=== PATIENT | female | born 1960 | race African-American/Black ===

== ENCOUNTER 2019-12-25 08:08 | Outpatient (CLI) | payer OTHER, SELFPAY ==
--- NOTE | ~2019-12-25 | MM_ITS ---
EXAMINATION: MM screening agustina BI w lorene HISTORY: Screening mammogram TECHNIQUE: Craniocaudal and mediolateral oblique 3-D tomosynthesis images were obtained and synthetic 2-D images were generated. CAD analysis was submitted and interpreted. COMPARISON: 12/18/2018, 12/16/2017, 12/03/2016 bilateral digital screening mammogram examinations BREAST PARENCHYMAL COMPOSITION: There are scattered areas of fibroglandular density. FINDINGS: There is no evidence of suspicious mass, calcification, or architectural distortion to sugg est malignancy in either breast. There has been no suspicious interval change. IMPRESSION: 1. No mammographic evidence of malignancy. 2. Recommend routine screening mammography in one year. Reviewed, dictated and finalized at location A.
== END 2019-12-25 08:09 | disposition home or self-care (01) ==
LOC: ANHIMG 08:10
PROVIDERS: PCP Family Medicine; Visit Provider Obstetrics & Gynecology Gynecology
DX: Z12.31 Encounter for screening mammogram for malignant neoplasm of breast (principal)
CPT/HCPCS: 77063; 77067

== ENCOUNTER 2020-04-22 07:23 | Outpatient (CLI) | payer OTHER, SELFPAY ==
--- NOTE | ~2020-04-22 | US_ITS ---
EXAMINATION: US thyroid EXAM DATE: 04/22/2020 08:16 INDICATION: Nontoxic single thyroid nodule. Right thyroid lobectomy. Prior left thyroid lobe biopsy. TECHNIQUE: Multiple grayscale and Doppler images of the thyroid were obtained (by a technologist who performed the scan) and subsequently reviewed. Individual nodules and recommendations may be reporte d in accordance with TI-RADS system as designated by the 2017 ACR White Paper TI-RADS committee. Comp saud is made to prior examination from 01/02/2019, 01/15/2014. FINDINGS: The right thyroid of hysterectomy bed is unremarkable. Left thyroid lobe measures 5.8 x 1.6 x 1.9 cm, mildly enlarged. There are several small nodules, largest measuring 2.3 x 1.1 x 2.4 cm, dimensions l arger than reported on prior study at 1.8 x 1.1 x 1.8. Correlating with prior ultrasound biopsy from 2013, it was a smaller thyroid nodule with calcifications that was biopsied, not this nodule. IMPRESSION: Left thyromegaly, nodules with mild increase in size of the largest nodule, likely differ ent from nodule biopsied in 2013. Could consider biopsy of this larger dominant nodule. Reviewed, dictated and finalized at location A. IMPRESSION: Left thyromegaly, nodules with mild increase in size of the largest nodule, likely different from nodule biopsied in 2013. Could consider biopsy o f this larger dominant nodule.
== END 2020-04-22 07:24 | disposition home or self-care (01) ==
LOC: ANHIMG 07:25
PROVIDERS: PCP Family Medicine; Visit Provider Internal Medicine Endocrinology, Diabetes & Metabolism
DX: E03.9 Hypothyroidism, unspecified (principal); E04.1 Nontoxic single thyroid nodule
CPT/HCPCS: 76536

== ENCOUNTER 2020-05-28 08:23 | Outpatient (CLI) | payer OTHER, SELFPAY ==
--- NOTE | ~2020-05-28 | US_ITS ---
EXAMINATION: US FNA w image guidance DATE: 05/28/2020 09:47 INDICATION: Nontoxic single thyroid nodule TECHNIQUE: A time-out was performed to verify the patient's name, date of , and procedure to be performed . The procedure and its benefits and risks were discussed with the patient. Risks specifically discus sed included bleeding and infection. The patient understood the risks and agreed to proceed. The neck was prepped and draped in the usual sterile manner. 2 mL 1% lidocaine was used for local anesthesia . 6 passes were made with a 25G needle into the lesion. Appropriate needle location was documented with continuous sonographic guidance. The specimens were passed to the medical technologist chief in the room. A sterile bandage was applied. There were no immediate complications. FINDINGS: Grayscale ultrasound images demonstrate biopsy needles advanced into the 2.4 cm solid left thyroid no dule of concern. IMPRESSION: 1. Successful ultrasound-guided fine needle aspiration of a 2.4 cm solid left thyroid nodule. Reviewed, dictated and finalized at location A. P PROJECT MANAGER
== END 2020-05-28 08:24 | disposition home or self-care (01) ==
PROVIDERS: PCP Family Medicine; Visit Provider Otolaryngology
DX: E04.1 Nontoxic single thyroid nodule (principal)
CPT/HCPCS: 10005; 88173; 88305

== ENCOUNTER 2020-09-23 07:12 | Outpatient (CLI) | payer OTHER, SELFPAY ==
--- NOTE | ~2020-09-23 | US_ITS ---
EXAMINATION: US thyroid DATE: 09/23/2020 07:44 INDICATION: Nontoxic single thyroid nodule TECHNIQUE: Multiple ultrasound images of the thyroid were obtained. COMPARISON: 04/22/2020 FINDINGS: The right thyroid lobe is not visualized and reportedly surgically absent. No abnormal tissue in the right thyroid fossa. The left thyroid lobe measures 5.2 x 2.5 x 1.6 cm. There are three solid iso to slightly hypoechoic nodules which are all wider than tall with either smooth partially smooth and il l-defined margins, all TI-RADS 4 (moderately suspicious , FNA if >=1.5 cm, annual followup is >=1 cm) . The largest measures 2.2 x 1.9 x 0.8 cm and the next largest measuring 2.0 x 1.7 x 1.0 cm. The smal lest measures 11 mm in maximal diameter. The 2 largest nodules have demonstrated progressive slow int erval growth since 02/14/2015 at which time they each measured 1.5 cm in maximal diameter. There is an additional smaller There is nodule 8 mm nodule in the upper pole of the left thyroid which is centra lly isoechoic to hypoechoic with ill-defined margins but which is also color than wide and with coars e shadowing calcification (TI-RADS 5, highly suspicious , FNA if >=1.0 cm, annual followup is >0.5 cm ). Finally there is a benign 5 mm TI RADS 1 cystic nodule. Normal echotexture, echogenicity and vascu lar flow throughout the thyroid gland. IMPRESSION: 1. Status post right thyroidectomy with multiple left-sided thyroid nodules. The 2 largest TI RADS 4 nodules measuring 2.2 cm and 2.0 cm have demonstrated slow interval growth since at least 2014 and me et criteria for ultrasound-guided biopsy which would be recommended. Reviewed, dictated and finalized at location B. E HAND IMPRESSION: 1. Status post right thyroidectomy with multiple left-sided thyroid nodules. Th e 2 largest TI RADS 4 nodules measuring 2.2 cm and 2.0 cm have demonstrated slo w interval growth since at least 2014 and meet criteria for ultrasound-guided b iopsy which would be recommended.
== END 2020-09-23 07:13 | disposition home or self-care (01) ==
LOC: ANHIMG 07:13
PROVIDERS: PCP Family Medicine; Visit Provider Internal Medicine Endocrinology, Diabetes & Metabolism
DX: E04.1 Nontoxic single thyroid nodule (principal); Z98.890 Other specified postprocedural states
CPT/HCPCS: 76536

== ENCOUNTER 2020-11-04 07:37 | Outpatient (CLI) | payer OTHER, SELFPAY ==
--- NOTE | 2020-11-04 08:55 | ECG_ITS ---
Measurements Intervals [place] Rate: 62 P: 64 ID: [id number] QRS: -9 QRSD: 108 T: 38 QT: 408 QTc: 415 Interpretive Statements SINUS RHYTHM INCOMPLETE RIGHT BUNDLE BRANCH BLOCK BORDERLINE R WAVE PROGRESSION, ANTERIOR LEADS BORDERLINE ECG Electronically Signed On 11-04-2020 9:21:59 CDT by Neal Holden D.O.
[2020-11-04 09:29] LABS: Add Urine Microscopic? NO; Appearance Urine Clear (Clear); Bilirubin Urine Negative (Negative); Blood Urine Negative (Negative); Color Urine Yellow (Yellow); Glucose Urine UA Negative (Negative); Ketones Urine Negative (Negative); Leukocyte Esterase Ur Negative LEU/UL (Negative); Nitrate Urine Negative (Negative); Protein Urine Negative (Negative); Specific Grav Ur 1.026 (1.001-1.035); Urobilinogen Urine Negative mg/dL (<2.0)
[2020-11-04 09:35] LABS: INR 0.9; Prothrombin Time 12.9 Seconds (11.1-14.7)
[2020-11-04 09:36] LABS: Partial Thromboplastin Time 29.8 SECONDS (22.3-36.8); Urine Cotinine NEGATIVE
== END 2020-11-04 07:38 | disposition home or self-care (01) ==
LOC: ANHSURGERY 07:42
PROVIDERS: PCP Family Medicine; Visit Provider Orthopaedic Surgery
DX: M17.12 Unilateral primary osteoarthritis, left knee (principal); Z01.818 Encounter for other preprocedural examination; I45.10 Unspecified right bundle-branch block
CPT/HCPCS: 80307; 81003; 85610; 85730; 86850; 86900; 86901; 87081; 93005

== ENCOUNTER → 2020-11-07 01:02 | Outpatient (CLI) | payer OTHER, SELFPAY ==
[2020-11-07 19:43] LABS: SARS-CoV-2 RNA PCR Negative
== END ==
PROVIDERS: PCP Family Medicine; Visit Provider Orthopaedic Surgery
DX: Z01.812 Encounter for preprocedural laboratory examination (principal); Z20.822 Contact with and (suspected) exposure to COVID-19
CPT/HCPCS: C9803; U0003; U0005

== ENCOUNTER 2020-11-12 19:17 | Observation (INO) | payer OTHER, SELFPAY ==
[2020-11-04 08:23] VITALS: BP 150/86; PULSE 80; RESP 18; TEMP 36.5; O2SAT 100; BMI 30.4
[2020-11-11] VITALS (12 sets, daily range): BP systolic 122–176; BP diastolic 61–91; PULSE 79–110; RESP 10–20; TEMP 36.1–36.7; O2SAT 98–100; BMI 30.5
--- NOTE | 2020-11-11 07:45 | WPDANESEPPF ---
Anes - Initial Pre Proc Eval Procedure: Operation Date: 11/11/20 10:30 Proposed Procedures p Left Total Knee Arthroplasty - Juan Turpin MD Date/Time: 11/11/20 07:45 Surgeon: Juan Turpin MD Pre Op Diagnosis: Left Knee DJD Patient Data Age: 60 Gender: F Height: 1.66 m Weight: 84.1 kg Last Vital Signs Temp 36.5 C 11/04/20 08:23 Pulse 80 11/04/20 08:23 Resp 18 11/04/20 08:23 BP 150/86 H 11/04/20 08:23 Pulse Ox 100 11/04/20 08:23 Allergies Allergy/AdvReac Type Severity Reaction Status Date / Time lisinopril Allergy Swelling Verified 11/11/20 08:44 Home Medications Medication Instructions Recorded Confirmed Type estradiol 1 mg tablet 1 mg PO DAILY 04/15/20 11/11/20 History meloxicam 15 mg tablet 15 mg PO DAILY PRN 05/27/20 11/05/20 History tramadol 50 mg tablet 50 mg PO Q6H PRN 05/27/20 11/05/20 History chlorhexidine gluconate 4 % 1 applic TOPICAL ONCE #237 ml 09/02/20 11/11/20 Rx topical liquid cholecalciferol (vitamin D3) 1,250 50,000 unit PO 2XW cap 10/08/20 11/11/20 History mcg (50,000 unit) capsule clonidine HCl 0.1 mg tablet 0.1 mg PO BID #60 tablet 10/08/20 11/11/20 Rx levothyroxine 50 mcg tablet 50 mcg PO DAILY #90 tablet 10/12/20 11/11/20 Rx hydrocodone 7.5 mg-acetaminophen 1 tablet PO Q6H PRN #120 tablet 10/20/20 11/11/20 Rx 325 mg tablet acetaminophen [Tylenol Arthritis] 650 mg PO Q6H PRN 11/04/20 11/11/20 History clotrimazole-betamethasone 1 applic TOPICAL BID PRN 11/04/20 11/11/20 History Patient hx anesthesia problems: none Family hx anesthesia problems: none PMFSH Past Medical History Medical History (Updated 11/11/20 @ 07:50 by Sterling Hernandez MD) Abnormal fasting glucose Acute sinusitis, unspecified Candidiasis Chronic interstitial cystitis Chronic left shoulder pain Chronic neck pain Chronic nonallergic rhinitis Chronic pain of both knees Essential (primary) hypertension Hypothyroidism, unspecified Left knee DJD Multinodular goiter Obesity Osteoarthritis involving multiple joints on both sides of body Sore throat Vitamin D deficiency, unspecified Surgical History Surgical History Hx of arthroscopy of left knee Status post total left knee replacement Family History Family History Other Hypertension Social History Social History Second hand tobacco smoke exposure: No Alcohol intake: never Substance use: never Substance use type: does not use Living arrangements: alone Spiritual care concerns: No Anes - Eval Final PreProcedure Day of Procedure 11/11/20 07:45 Patient weight: obese Heart: regular rate and rhythm Lungs: clear to auscultation and normal air movement Airway: Mallampati scale class II Neurological: alert and oriented Last oral intake: >/= 8 hours ASA classification: III Emergent: no Anesthetic plan: proceed Anesthesia type and monitoring: general LMA and ETT Informed Consent: The patient's anesthetic plan and its attendant risks and benefits were discussed with the patient/family/POA. Questions were solicited and answers provided to the satisfaction of the patient/family/POA.
--- NOTE | 2020-11-11 07:50 | WPDANESPNB ---
Anes - Peripheral Nerve Block Date/Time: 11/11/20 07:50 I have discussed with the patient/family/POA the placement of a peripheral nerve block for post-operative pain management, including associated risks, benefits, complications, and side effects. Alternative methods of post-operative analgesia were detailed. Questions were solicited and answers provided to the satisfaction of the patient/family/POA. Time-Out: A pre-procedural Time-Out was completed immediately before starting the procedure and confirmed: Patient Identification, Site, Procedure, Patient Position and the Availability of Requisite Equipment. Clinical Indications: Acute post-operative pain management requested by the operative surgeon. Nerve Block Insertion Note Anes-nerve block: adductor canal left Patient position: supine Skin prep: chlorhexidine Needle: 22 gauge, stimulating, insulated echogenic needle. Needle length: 80 mm Technique: ultrasound Technique comment: in plane Injectate: bupivacaine 0.5% with epi 5 mcg/ml (30cc) Observations: tolerated well Complications: none Procedure start time:: 1125 Procedure end time:: 1130
--- NOTE | 2020-11-11 08:19 | WPDHPUPDATE1 ---
History and Physical Update Update Date/Time: 11/11/20 08:19 History and Physical has been reviewed, including an updated exam of the patient. There are NO changes in the patient's condition. Risks, benefits, and alternatives have been discussed and questions answered. Patient agrees to proceed with procedure.
[2020-11-11] MEDS: ACETAMINOPHEN 500 MG TABLET 1000 MG PO (09:46)
[2020-11-11] MEDS: LACTATED RINGERS 1,000 ML 30 ML IV CONT ×2 (09:46→14:01)
[2020-11-11] MEDS: TRANEXAMIC ACID 1,000MG/ISO100 1,000 MG/100 ML BAG 200 MG IVPB (09:47)
[2020-11-11] MEDS: ceFAZolin 2 GM/D5W 50 ML 2 GM/50 ML BAG IVPB ×2 (11:45→20:08)
[2020-11-11] MEDS: GENTAMICIN BONE CEMENT REFOBACIN 1 EACH TOPICAL (12:45)
--- NOTE | 2020-11-11 14:10 | PM.PROC ---
Procedure Note - Detailed Date of procedure: 11/11/20 Pre-op diagnosis: Left Knee DJD Post-op diagnosis: same Procedure performed: L TKA Description of procedure: THE LEFT KNEE WAS PREPPED AND DRAPED IN THE STERILE FASHION. A MIDLINE SKIN INCISION WAS MADE. A MEDIAL PARAPATELLAR ARTHROTOMY WAS MADE. THE PATELLA WAS EVERTED. THERE WAS TRICOMPARTMENT DJD. THERE WAS MINIMAL PATELLA DJD. AN INTRAMEDULLARY KASSIDY WAS PLACED IN THE FEMUR. A DISTAL FEMORAL CUT WAS MADE IN 5 DEGREES OF VALGUS REMOVING APPROXIMATELY 9 MM OF BONE FROM THE DISTAL FEMUR. THE FEMUR WAS SIZED TO 62.5. A 62.5 FEMORAL CUTTING BLOCK WAS PLACED IN 3 DEGREES OF EXTERNAL ROTATION AND IN ALIGNMENT WITH CHANDRIKA'S LINE AND THE TRANSEPICONDYLAR AXIS. ANTERIOR POSTERIOR AND CHAMFER CUTS WERE MADE. THE CUTS WERE EXCELLENT. NEXT AN INTRAMEDULLARY CUTTING GUIDE WAS PLACED IN THE TIBIA. A TRANS TIBIAL CUT WAS MADE ALONG THE LONG AXIS OF THE TIBIA. APPROXIMATELY 10 MM OF BONE WAS REMOVED FROM THE HIGH SIDE OF THE TIBIA. THE TIBIA WAS THEN PLANED TO A SMOOTH SURFACE. POSTERIOR FEMORAL OSTEOPHYTES WERE REMOVED FROM THE FEMORAL CONDYLES. A 67 TIBIAL TRIAL WAS PLACED IN ALIGNMENT WITH THE 1/3 MEDIAL ASPECT OF THE TIBIAL TUBERCLE. THEN A 70 FEMORAL TRIAL COMPONENT WAS PLACED. BOTH HAD EXCELLENT FITS. EVENTUALLY A 10 MM POLYETHYLENE TRIAL COMPONENT WAS PLACED. THE KNEE WAS TAKEN THROUGH A RANGE OF MOTION. THE KNEE CAME OUT TO FULL EXTENSION. THERE WAS NO ABNORMAL TILT TO THE PATELLA. THERE WAS GOOD A/P AND VARUS/VALGUS STABILITY. THERE WAS NO EXCESSIVE ROLL BACK WITH FLEXION. THE TRIAL COMPONENTS WERE REMOVED. THEN A 62.5 FEMORAL COMPONENT AND 67 TIBIAL COMPONENT WITH A 10 CR POLYETHYLENE COMPONENT WERE CEMENTED INTO PLACE. ONCE THE CEMENT WAS HARD THE KNEE WAS TAKEN THROUGH A ROM AGAIN AND FOUND TO BE STABLE WITH NO PATELLA TILT NO EXCESSIVE ROLL BACK WITH FLEXION AND GOOD STABILITY WITH COMPLETE AND FULL EXTENSION. THE KNEE WAS IRRIGATED WITH STERILE BETADINE AND WATER FOR ABOUT 3 MINUTES. THE BLEEDERS WERE CAUTERIZED. THE ARTHROTOMY WAS REPAIRED WITH NUMBER 1 VICRYL. THE SUB CUTANEOUS LAYER WITH 2-0 VICRYL AND THE SKIN WITH MARIBETH. THE WOUND WAS WASHED AND A STERILE DRESSING WAS APPLIED. PATIENT WAS EXTUBATED. Anesthesia: GETA Surgeon: Juan Turpin MD Estimated blood loss (mL): 100 Complications: No immediate complications Condition: stable Disposition: PACU
[2020-11-11] MEDS: fentaNYL CITRATE INJ (*CRX) 100 MCG/2 ML VIAL 25 MCG IV PUSH ×4 (14:14→14:30)
[2020-11-11] MEDS: HYDROmorphone HCL INJ (*CRX) 1 MG/ML SYR 0.25 MG IV PUSH ×4 (14:37→14:59)
--- NOTE | 2020-11-11 15:20 | ADMGEN ---
This patient, Key Hughes, was admitted to Medical Room 243-. Patient/family oriented to hospital policies and general routines including ID bracelet, bed and alarms, visiting hours, pain management, procedures, bathroom and other care routines, personal items, smoking policy, room service/diet, and visiting hours. Information on how to activate the Rapid Response Team has been discussed. Patient/Family are encouraged to report perceived risks to care and to ask questions if they do not understand what they are told or what they should do.
[2020-11-11] MEDS: oxyCODONE HCL (*CRX) 5 MG TAB IR 10 MG PO (15:56)
[2020-11-11] MEDS: cloNIDine HCL 0.1 MG TABLET PO (16:02)
[2020-11-11] MEDS: SODIUM CHLORIDE 0.9% IV 1,000 ML 125 ML IV CONT (16:03)
[2020-11-11] MEDS: KETOROLAC 15 MG/ML VIAL (*BKC) IV PUSH ×2 (17:02→23:57)
[2020-11-11] MEDS: DOCUSATE SODIUM LIQ 100 MG/10 ML UDC PO (17:27)
[2020-11-11] MEDS: diazePAM (*CRX) 5 MG TABLET PO (17:31)
[2020-11-11] MEDS: oxyCODONE/ACETAMINOPHEN (*CRX) 5-325 MG TABLET 1 TABLET PO (20:11)
[2020-11-11] MEDS: FAMOTIDINE 20 MG TABLET PO (20:15)
[2020-11-12] VITALS (7 sets, daily range): BP systolic 120–139; BP diastolic 55–75; PULSE 68–110; RESP 16–21; TEMP 36.9–37.2; O2SAT 99–100
--- NOTE | ~2020-11-12 | XR_ITS ---
EXAMINATION: XR knee LT 2V DATE: 11/11/2020 14:25 CDT INDICATION: Left total knee arthroplasty TECHNIQUE: 2 views left knee FINDINGS: There is a left total knee arthroplasty in expected position. Subcutaneous gas with fluid and air in the joint and overlying skin oxana are consistent with recent surgery. No evidence of pe riprosthetic fracture. IMPRESSION: 1. Recent left total knee arthroplasty. Reviewed, dictated and finalized at location A.
[2020-11-12] MEDS: SODIUM CHLORIDE 0.9% IV 1,000 ML 125 ML IV CONT (01:37)
[2020-11-12] MEDS: ceFAZolin 2 GM/D5W 50 ML 2 GM/50 ML BAG IVPB ×2 (04:03→12:13)
[2020-11-12] MEDS: oxyCODONE/ACETAMINOPHEN (*CRX) 5-325 MG TABLET 1 TABLET PO ×2 (04:06→09:10)
[2020-11-12 05:34] LABS: Basophils Percent Auto 0.2 % (0.2-1.2); Eosinophils Percent Auto 0.2 % (0-4.4); Hemoglobin 10.5 g/dL (12.0-15.0); Immature Granulocyte Absolute 0.04 K/mm3 (0.00-0.031); Immature Granulocyte Percent A 0.5 % (0-0.5); Lymphocytes Absolute Auto 1.06 K/mm3 (0.9-3.2); Lymphocytes Percent Auto 13.2 % (18.3-44.2); Mean Corpuscular HGB Conc 31.8 g/dl (32-36); Mean Corpuscular Hemoglobin 27.9 pg (26-34); Mean Corpuscular Volume 87.8 fl (80-100); Mean Platelet Volume 10.8 fl (7.4-10.4); Monocytes Absolute Auto 0.8 K/mm3 (0.1-0.6); Monocytes Percent Auto 9.9 % (2.6-8.5); Neutrophils Absolute Auto 6.1 K/mm3 (1.3-6.7); Platelet Count Result 166 k/mm3 (150-375); Red Blood Count 3.76 M/mm3 (4.2-5.4); Red Cell Distribution Width 13.5 % (11.5-14.5); White Blood Count 8.1 K/mm3 (4.5-10.0)
[2020-11-12] MEDS: LEVOTHYROXINE SODIUM 50 MCG TABLET PO (05:44)
[2020-11-12] MEDS: KETOROLAC 15 MG/ML VIAL (*BKC) IV PUSH ×3 (05:44→18:15)
[2020-11-12 05:57] LABS: Anion Gap 0 mmol/L (8-16); Blood Urea Nitrogen 10 mg/dL (7-17); Calcium 7.9 mg/dL (8.4-10.2); Carbon Dioxide 30 mmol/L (22-30); Chloride 107 mmol/L (98-107); Estimated CRCL calculation 80 ml/min; Estimated Glomerular Filt Rate > 60; Glucose 115 mg/dL (65-105); Potassium 3.5 mmol/L (3.4-5.0); Sodium 137 mmol/L (137-145)
--- NOTE | 2020-11-12 08:06 | P.PNAN_ITS ---
Anes - Prog Note Post-Op Date/Time: 11/12/20 08:06 Cardiovascular status: normal Respiratory status: normal Airway patency: baseline Mental status: baseline Post-Op hydration status: normal Vital Signs: Last Vital Signs Temp 98.9 F 11/12/20 06:00 Pulse 86 11/12/20 06:00 Resp 18 11/12/20 06:00 BP 133/55 L 11/12/20 06:00 Pulse Ox 99 11/12/20 06:00 Pain Score (VAS): 08/02 I/O: Intake & Output 11/11/20 11/12/20 11/12/20 23:59 07:59 15:59 Intake Total 200 1800 Output Total 500 Balance 200 1300 Laboratory Tests 11/12/20 05:11 11/12/20 05:11 11/12/20 11/12/20 05:11 05:11 WBC 8.1 RBC 3.76 L Hgb 10.5 L Hct 33.0 L MCV 87.8 MCH 27.9 MCHC 31.8 L RDW 13.5 Plt Count 166 MPV 10.8 H Immature Gran % (Auto) 0.5 Neut % (Auto) 76.0 H Lymph % (Auto) 13.2 L Crowley % (Auto) 9.9 H Eos % (Auto) 0.2 Baso % (Auto) 0.2 Lymph # (Auto) 1.06 Crowley # (Auto) 0.8 H Eos # (Auto) 0.0 Baso # (Auto) 0.0 Abs Immat Gran (auto) 0.04 H Absolute Neuts (auto) 6.1 Absolute Nucleated RBC 0.0 Nucleated RBC % 0.0 Sodium 137 Potassium 3.5 Chloride 107 Carbon Dioxide 30 Anion Gap 0 L BUN 10 Creatinine 0.70 Estim Creat Clear Calc 80 Estimated GFR > 60 Glucose 115 H Calcium 7.9 L Post-procedural complaints: none Patient Feedback: Patient satisfied with anesthetic care.
--- NOTE | 2020-11-12 08:46 | PM.PNORT ---
Progress Note: A&P Assessment and Plan (1) Status post total left knee replacement: Code(s): Z96.652 - Presence of left artificial knee joint Status: Acute Assessment and Plan: POD #1: LEFT TKA Continue PT/OT. WBAT. Walker. HIGH FALL RISK. Continue pain control. Ice knee. May remove APPLE bandage with PT/OT today. Monitor dressing. Change prior to discharge. DVT prophylaxis. SCDs. Incentive spirometry. Dispo: Home with Home Health pending progress with PT/OT. Subjective Subjective Date/Time Seen: 11/12/ 08:46 Post Op day: 1 Interval history: POD #1: LEFT TKA Patient reports feeling much better today. Pain well controlled. Up in chair eating breakfast. Awaiting PT/OT this AM. Review of Systems Review of Systems: All systems reviewed & are unremarkable except as noted in HPI and below Constitutional: Constitutional: Denies fever(s) and Denies headache(s) ENT: Denies headache(s) Cardiovascular: Cardiovascular: Denies chest pain, Denies diaphoresis, Denies palpitations and Denies dyspnea Respiratory: Respiratory: Denies dyspnea Gastrointestinal: Gastrointestinal: Denies abdominal pain, Denies constipation, Denies nausea and Denies vomiting Genitourinary: Genitourinary: Reports nocturia and Denies dysuria Musculoskeletal: Musculoskeletal: Reports arthralgias (Left Knee ), Reports joint swelling (Left Knee ) and Reports limited range of motion (ROM limited due to recent surgical intervention LEFT Knee ) Neurologic: Denies headache(s) Endocrine: Endocrine: Denies palpitations Exam Const: General: comfortable and no acute distress Resp: Effort & Inspection: normal respiratory effort Cardio: Rate: regular rate Rhythm: regular rhythm GI: GI Palp: Yes Soft to palpation, No Tenderness to palpation present (GI) and No Guarding due to palpation present (GI) Skin: Wounds: wounds noted Other: Incision c/d/i. No surrounding redness/warmth. No hematoma. Mild ecchymosis. No wound dehiscence Neuro: Cognition (Neuro): normal cognition Other: NV intact aside from block. Moves toes. Sensation intact to light touch. +ankle dorsiflexion/plantarflexion. Extrem: Left lower extremity: normal capillary refill and knee Details: tenderness (diffuse ), swelling (moderate consistent to recent surgery ), abnormal ROM (limited due to recent surgery ) and ecchymosis (as expected with recent surgery. NO hematoma. ) Other: Incision left TKA dressing c/d/i. No hematoma. No signs of infection. No wound dehiscence. Psych: Mental Status: mental status grossly normal Objective Data Vital Signs Vital Signs: Vital Signs - 24 hr 11/11/20 09:27 11/11/20 14:01 11/11/20 14:15 Temperature 36.1 C L 36.1 C L Pulse Rate 84 99 110 H Respiratory Rate 18 18 20 Blood Pressure 133/61 136/74 152/84 H Pulse Oximetry 100 100 100 11/11/20 14:30 11/11/20 14:45 11/11/20 15:00 Temperature Pulse Rate 97 97 85 Respiratory Rate 15 11 L 10 L Blood Pressure 145/78 H 154/74 H Pulse Oximetry 100 99 100 11/11/20 15:25 11/11/20 15:40 11/11/20 16:10 Temperature 36.1 C L 36.2 C L 36.3 C L Pulse Rate 92 88 87 Respiratory Rate 12 14 14 Blood Pressure 138/68 138/81 148/79 H Pulse Oximetry 98 100 100 11/11/20 17:10 11/11/20 18:00 11/11/20 22:00 Temperature 36.4 C L 36.3 C L 36.7 C Pulse Rate 99 87 79 Respiratory Rate 16 14 16 Blood Pressure 176/91 H 126/73 122/70 Pulse Oximetry 100 99 100 11/12/20 02:50 11/12/20 06:00 Temperature 37.0 C 37.2 C Pulse Rate 68 86 Respiratory Rate 18 18 Blood Pressure 124/66 133/55 L Pulse Oximetry 99 99 Intake/Output Intake/Output: Intake & Output 11/09/20 11/10/20 11/11/20 11/12/20 23:59 23:59 23:59 23:59 Intake Total 550 1800 Output Total 500 Balance 550 1300 Meds/Results Medications: Active Medications Generic Name Dose Route Start Last Admin Trade Name Freq PRN Reason Stop Dose Admin Acetaminophen 650 mg 11/11/20 15:16 Acetaminoph
[2020-11-12] MEDS: DOCUSATE SODIUM LIQ 100 MG/10 ML UDC PO ×2 (08:54→18:14)
[2020-11-12] MEDS: FAMOTIDINE 20 MG TABLET PO ×2 (08:54→20:31)
[2020-11-12] MEDS: cloNIDine HCL 0.1 MG TABLET PO ×2 (08:54→18:14)
[2020-11-12] MEDS: ASPIRIN 81 MG CHEWABLE TABLET 648 MG PO (12:04)
[2020-11-12] MEDS: oxyCODONE HCL (*CRX) 5 MG TAB IR 10 MG PO ×2 (16:20→20:33)
[2020-11-13 02:00] VITALS: BP 119/50; PULSE 112; RESP 21; TEMP 37.7; O2SAT 100
[2020-11-13] MEDS: oxyCODONE/ACETAMINOPHEN (*CRX) 5-325 MG TABLET 1 TABLET PO ×2 (02:12→06:15)
[2020-11-13] MEDS: LEVOTHYROXINE SODIUM 50 MCG TABLET PO (05:34)
[2020-11-13 06:00] VITALS: BP 129/62; PULSE 105; RESP 20; TEMP 36.6; O2SAT 99
[2020-11-13] MEDS: FAMOTIDINE 20 MG TABLET PO (09:33)
[2020-11-13] MEDS: ERGOCALCIFEROL 50,000 UNIT CAPSULE 50000 UNITS PO (09:33)
[2020-11-13] MEDS: DOCUSATE SODIUM LIQ 100 MG/10 ML UDC PO (09:34)
[2020-11-13] MEDS: ASPIRIN 81 MG CHEWABLE TABLET 648 MG PO (09:34)
[2020-11-13] MEDS: cloNIDine HCL 0.1 MG TABLET PO (09:34)
[2020-11-13 09:50] VITALS: BP 135/51; PULSE 102; RESP 16; TEMP 37.8; O2SAT 100
[2020-11-13] MEDS: oxyCODONE HCL (*CRX) 5 MG TAB IR 10 MG PO ×2 (10:01→14:53)
--- NOTE | 2020-11-13 13:33 | PM.PNORT ---
Progress Note: A&P Additional Plan POD 2 DOING WELL. OK TO DC HOME TODAY. SHE WILL F/U ON MONDAY FOR WOUND CHECK Subjective Subjective Date/Time Seen: 11/13/20 13:33 Post Op day: 2 Interval history: POD 2 DOING WELL GOOD PROGRESS WITH PT. NO CALF PAIN Exam Const: General: comfortable and no acute distress Resp: Effort & Inspection: normal respiratory effort Cardio: Rate: regular rate Rhythm: regular rhythm GI: GI Palp: Yes Soft to palpation, No Tenderness to palpation present (GI) and No Guarding due to palpation present (GI) Skin: Wounds: wounds noted Other: Incision c/d/i. No surrounding redness/warmth. No hematoma. Mild ecchymosis. No wound dehiscence Neuro: Cognition (Neuro): normal cognition Other: NV intact aside from block. Moves toes. Sensation intact to light touch. +ankle dorsiflexion/plantarflexion. Extrem: Left lower extremity: normal capillary refill and knee Details: tenderness (diffuse ), swelling (moderate consistent to recent surgery ), abnormal ROM (limited due to recent surgery ) and ecchymosis (as expected with recent surgery. NO hematoma. ) Other: Incision left TKA dressing c/d/i. No hematoma. No signs of infection. No wound dehiscence. Mild blistering over edward incisional region. Psych: Mental Status: mental status grossly normal Objective Data Vital Signs Vital Signs: Vital Signs - 24 hr 11/12/20 14:00 11/12/20 17:56 11/12/20 21:43 Temperature 37.2 C 37.1 C Pulse Rate 90 101 H Respiratory Rate 16 16 Blood Pressure 124/75 120/75 Pulse Oximetry 100 100 99 11/12/20 22:00 11/13/20 02:00 11/13/20 06:00 Temperature 36.9 C 37.7 C H 36.6 C Pulse Rate 110 H 112 H 105 H Respiratory Rate 21 H 21 H 20 Blood Pressure 138/70 119/50 L 129/62 Pulse Oximetry 100 100 99 11/13/20 09:50 Temperature 37.8 C H Pulse Rate 102 H Respiratory Rate 16 Blood Pressure 135/51 L Pulse Oximetry 100 Intake/Output Intake/Output: Intake & Output 11/10/20 11/11/20 11/12/20 11/13/20 23:59 23:59 23:59 23:59 Intake Total 550 2160 640 Output Total 1050 700 Balance 550 1110 -60 Meds/Results Medications: Active Medications Generic Name Dose Route Start Last Admin Trade Name Freq PRN Reason Stop Dose Admin Acetaminophen 650 mg 11/11/20 15:16 Acetaminophen 325 Mg Tablet PO Q6H PRN Mild Pain (1-3) Aspirin 648 mg 11/12/20 10:30 11/13/20 09:34 Aspirin 81 Mg Chewable Tablet PO 648 mg DAILY TED Administration Clonidine HCl 0.1 mg 11/11/20 17:00 11/13/20 09:34 Clonidine Hcl 0.1 Mg Tablet PO 0.1 mg BID TED Administration Diazepam 5 mg 11/11/20 15:16 11/11/20 17:31 Diazepam (*Crx) 5 Mg Tablet PO 5 mg Q8H PRN Administration Spasms Diphenhydramine HCl 25 mg 11/11/20 15:16 Diphenhydramine Hcl Inj 50 Mg/Ml Vial IV PUSH Q6H PRN Itching Docusate Sodium 100 mg 11/11/20 17:00 11/13/20 09:34 Docusate Sodium Liq 100 Mg/10 Ml Udc PO 100 mg BID TED Administration Ergocalciferol 50,000 unit 11/13/20 09:00 11/13/20 09:33 Ergocalciferol 50,000 Unit Capsule PO 50,000 unit MoFr@0900 TED Administration Famotidine 20 mg 11/11/20 21:00 11/13/20 09:33 Famotidine 20 Mg Tablet PO 20 mg Q12HR TED Administration Levothyroxine Sodium 50 mcg 11/12/20 06:30 11/13/20 05:34 Levothyroxine Sodium 50 Mcg Tablet PO 50 mcg DAILY@0630 TED Administration Naloxone HCl 0.1 mg 11/11/20 15:16 Naloxone Hcl 0.4 Mg/Ml Vial IV PUSH Q2M PRN Opiate Reversal Ondansetron HCl 4 mg 11/11/20 15:16 Ondansetron Inj 4 Mg/2 Ml Vial IV PUSH Q4H PRN Nausea And Vomiting Oxycodone HCl 10 mg 11/11/20 15:16 11/13/20 10:01 Oxycodone Hcl (*Crx) 5 Mg Tab Ir PO 10 mg Q4H PRN Administration Pain Rated 7-10 Oxycodone/Acetaminophen 1 tablet 11/11/20 15:16 11/13/20 06:15 Oxycodone/Acetaminophen (*Crx) 5-325 Mg Tablet PO 1 tablet Q4H PRN Administration Pain Rated 4-6
[2020-11-13 13:35] VITALS: BP 103/64; PULSE 100; RESP 16; TEMP 36.4; O2SAT 100
--- NOTE | 2020-11-13 13:42 | PM.DS ---
DS: Admitting Diagnosis Admitting Diagnosis Admitting Diagnosis: LEFT KNEE DJD DS: Discharge Diagnosis Discharge Diagnosis (1) Status post total left knee replacement: Code(s): Z96.652 - Presence of left artificial knee joint Status: Acute DS: Summary Hospital Course Reason for hospitalization: L TKA Hospital Course: PATIENT UNDERWENT L TKA. SHE DID WELL DURING SURGERY. SHE HAD SLOW PROGRESS WITH PT. HER PAIN WAS FINALLY WELL CONTROLLED. SHE DEVELOPED SOME MILD WOUND BLISTERS BUT NO DEHISCENCE. WAS READY FOR DC TODAY. SHE WOULD D/CD TO HOME WITH HOME PT AND NURSING. SHE WOULD F/U FOR WOUND CARE ON THIS MONDAY. Time spent discussing smoking cessation with patient: more than 10 minutes Status at Discharge Functional status at discharge: uses cane/walker Overall status at discharge: patient is not back to baseline Time Spent with Patient Time attestation: Total time spent providing and/or coordinating discharge services: Time spent: Greater than 30 minutes DS: Data Data Completed and Pending Pending studies at discharge: Pending at discharge 11/11/20 12:20 Surgical [PTH] Routine Discharge Plan Discharge Attending physician on discharge: Juan Turpin Discharging Clinician: Juan Turpin Anticipated Discharge Date/Time: 11/13/20 13:37 Patient Disposition: Home Health Service Activity: may shower and no driving Diet: as tolerated Wound Care Instructions: keep dressing dry Discharge Instructions: Post Op Total Knee Replacement Instructions Dr. Juan Turpin ?Your dressing will be changed prior to your discharge. You will be sent home with one additional dressing to be changed in 5 days by the home health RN. Your oxana will be removed on the 14th day after surgery and steri-strips will be placed. ?You may shower with your dressing but do not submerge in a bath tub. ?Do not drive or operate machinery until you are released by Dr. Turpin. ?Do not walk without a walker for any reason until you are released by Dr. Turpin. ?Continue to use your ice machine. Please use a towel or pillow case to protect your skin before applying your ice machine. ?Do NOT place a pillow under your knee. You may use a pillow from the calf down if needed. ?You may begin use of your CPM machine at home if you have been given one pre-operatively. DO NOT USE WHILE YOU ARE SLEEPING. ?Your follow up appointment is indicated in your discharge instructions. ?Your medications have been sent to your pharmacy. ?Please contact our office with any questions/concerns regarding your knee at [phone] Per Care Coordination: Patient to have [facility] for half-way and PT/OT evaluation/treatment. They can be reached at [phone]. Patient Instructions: Antibiotic Form, Knee Replacement (DC) Stand Alone Forms: General Discharge Information Follow-up/Referrals: Juan Turpin MD [Physician] - Other (FOLLOW UP THIS COMING MONDAY FOR WOUND CHECK) Discharge Medications: New oxycodone-acetaminophen [Percocet] 7.5-325 mg tablet 1 tablet PO Q6H PRN (Reason: pain) Qty: 60 RF: 0 Continued estradiol [Estrace] 1 mg tablet 1 mg PO DAILY RF: 0 clonidine HCl 0.1 mg tablet 0.1 mg PO BID Qty: 60 RF: 11 cholecalciferol (vitamin D3) 1,250 mcg (50,000 unit) capsule 50,000 unit PO 2XW RF: 0 chlorhexidine gluconate [Hibiclens] 4 % liquid 1 applic topical ONCE Qty: 237 RF: 0 tramadol 50 mg tablet 50 mg PO Q6H PRN (Reason: pain) RF: 0 meloxicam 15 mg tablet 15 mg PO DAILY PRN (Reason: pain) RF: 0 acetaminophen [Tylenol Arthritis] 650 mg Tablet Extended Release 650 mg PO Q6H PRN (Reason: Pain) RF: 0 clotrimazole-betamethasone 1-0.05 % cream 1 applic topical BID PRN (Reason: SKIN IRRITATION) RF: 0 levothyroxine 50 mcg tablet 50 mcg PO DAILY Qty: 90 RF: 1 hydrocodone-acetaminophen 7.5-325 mg tablet 1 tablet PO Q6H PRN (Reason: pain) Qty:
== END 2020-11-13 16:30 | disposition home health service (06) ==
LOC: ANHSURGERY 19:21 → ANH2MED 19:21
PROVIDERS: Admitting Provider Orthopaedic Surgery; PCP Family Medicine; Visit Provider Orthopaedic Surgery
PROC: (CPT 27447; principal; 2020-11-11 10:30)
DX: M17.12 Unilateral primary osteoarthritis, left knee (principal); M65.862 Other synovitis and tenosynovitis, left lower leg; G89.18 Other acute postprocedural pain; I10 Essential (primary) hypertension; E03.9 Hypothyroidism, unspecified; E55.9 Vitamin D deficiency, unspecified; E04.2 Nontoxic multinodular goiter; M89.49 Other hypertrophic osteoarthropathy, multiple sites; E66.9 Obesity, unspecified; Z68.30 Body mass index [BMI] 30.0-30.9, adult
CPT/HCPCS: 27447; 64447; 36415; 73560; 80048; 80307; 81003; 85025; 85610; 85730; 86850; 86900; 86901; 87081; 88304; 88305; 93005; 97110; 97116; 97161; 97165; 97530; 97535; A9270; C1713; C1776; C9803; G0378; J0171; J0690; J1170; J1885; J2250; J2270; J2405; J2704; J2795; J3010; J7030; J7120; U0003; U0005

== ENCOUNTER 2021-02-01 10:00 | Outpatient (CLI) | payer OTHER, SELFPAY ==
--- NOTE | ~2021-02-01 | US_ITS ---
EXAMINATION: US thyroid DATE: 02/01/2021 10:49 INDICATION: Nontoxic single thyroid nodule. TECHNIQUE: Multiple ultrasound images of the thyroid were obtained. COMPARISON: Ultrasound 09/23/2020, 02/06/16, 04/22/20, 01/02/19 FINDINGS: The right thyroid lobe is absent. The left thyroid lobe measures 5.3 x 2.2 x 2.7 cm. In the left thy roid lobe, there is a 2.4 cm solid, hypoechoic, ylqtr-kcwn-rsqy nodule with ill-defined margin withou t echogenic foci (TI-RADS TR4) that demonstrated benign pathology at fine needle aspiration on 0. In the left thyroid lobe, there is a 2.4 cm solid, hypoechoic, enlsl-xjbi-xquc nodule with ill-def ined margin without echogenic foci (TR4). In the left thyroid lobe, there is a 7 mm solid, hypoechoic , bcenk-aagh-smme nodule with ill-defined margin with macrocalcifications (TR4). In the left thyroid lobe, there is a 12 mm solid, isoechoic, qjwzx-nmwz-tahg nodule with ill-defined margin without echog enic foci (TR3). IMPRESSION: 1. Multinodular goiter, likely stable from 02/06/2016 considering differences in measurement technique , likely benign. Reviewed, dictated and finalized at location A. IMPRESSION: 1. Multinodular goiter, likely stable from 02/06/2016 considering differences in measurement technique, likely benign.
== END 2021-02-01 10:01 | disposition home or self-care (01) ==
PROVIDERS: PCP Family Medicine; Visit Provider Internal Medicine Endocrinology, Diabetes & Metabolism
DX: E04.2 Nontoxic multinodular goiter (principal)
CPT/HCPCS: 76536

== ENCOUNTER 2021-02-11 07:37 | Outpatient (CLI) | payer OTHER, SELFPAY ==
--- NOTE | ~2021-02-11 | MM_ITS ---
EXAMINATION: MM screening agustina BI w lorene HISTORY: Screening TECHNIQUE: Craniocaudal and mediolateral oblique 3-D tomosynthesis images were obtained and synthetic 2-D images were generated. CAD analysis was submitted and interpreted. COMPARISON: Comparison to multiple prior studies sequentially, with oldest reviewed study dated 11/06. BREAST PARENCHYMAL COMPOSITION: There are scattered areas of fibroglandular density. FINDINGS: There is no evidence of suspicious mass, calcification, or architectural distortion to sugg est malignancy in either breast. There has been no suspicious interval change. IMPRESSION: 1. No mammographic evidence of malignancy. 2. Recommend routine screening mammography in one year. BI-RADS Category 1: Negative Reviewed, dictated and finalized at location A.
== END 2021-02-11 07:38 | disposition home or self-care (01) ==
PROVIDERS: PCP Family Medicine; Visit Provider Obstetrics & Gynecology Gynecology
DX: Z12.31 Encounter for screening mammogram for malignant neoplasm of breast (principal)
CPT/HCPCS: 77063; 77067

== ENCOUNTER 2021-04-28 07:43 | Outpatient (CLI) | payer OTHER, SELFPAY ==
[2021-04-28 09:03] LABS: Add Urine Microscopic? NO; Appearance Urine Clear (Clear); Bilirubin Urine Negative (Negative); Blood Urine Negative (Negative); Color Urine Yellow (Yellow); Glucose Urine UA Negative (Negative); Ketones Urine Negative (Negative); Leukocyte Esterase Ur Negative LEU/UL (Negative); Nitrate Urine Negative (Negative); Protein Urine Negative (Negative); Urobilinogen Urine Negative mg/dL (<2.0)
[2021-04-28 09:04] LABS: Basophils Percent Auto 0.8 % (0.2-1.2); Eosinophils Absolute Auto 0.1 K/mm3 (0-0.3); Eosinophils Percent Auto 3.2 % (0-4.4); Hematocrit 39.1 % (37.0-47.0); Hemoglobin 12.4 g/dL (12.0-15.0); Lymphocytes Absolute Auto 1.99 K/mm3 (0.9-3.2); Lymphocytes Percent Auto 52.6 % (18.3-44.2); Mean Corpuscular HGB Conc 31.7 g/dl (32-36); Mean Corpuscular Hemoglobin 27.3 pg (26-34); Mean Corpuscular Volume 85.9 fl (80-100); Mean Platelet Volume 10.6 fl (7.4-10.4); Monocytes Absolute Auto 0.5 K/mm3 (0.1-0.6); Neutrophils Absolute Auto 1.1 K/mm3 (1.3-6.7); Neutrophils Percent Auto 29.4 % (45.5-73.1); Platelet Count Result 196 k/mm3 (150-375); Red Blood Count 4.55 M/mm3 (4.2-5.4); Red Cell Distribution Width 15.3 % (11.5-14.5); White Blood Count 3.8 K/mm3 (4.5-10.0)
[2021-04-28 09:09] LABS: INR 0.9; Prothrombin Time 12.3 Seconds (11.1-14.7)
[2021-04-28 09:10] LABS: Partial Thromboplastin Time 28.4 SECONDS (22.3-36.8)
[2021-04-28 09:18] LABS: Albumin Level 4.2 g/dL (3.5-5.1); Anion Gap 5 mmol/L (8-16); Blood Urea Nitrogen 16 mg/dL (7-17); Calcium 9.3 mg/dL (8.4-10.2); Carbon Dioxide 30 mmol/L (22-30); Chloride 105 mmol/L (98-107); Estimated Glomerular Filt Rate > 60; Glucose 112 mg/dL (65-110); Sodium 140 mmol/L (137-145)
[2021-04-28 09:19] LABS: Specific Grav Ur 1.031 (1.001-1.035)
[2021-04-28 09:24] LABS: Urine Cotinine NEGATIVE
[2021-04-28 10:09] LABS: Hemoglobin A1C 5.4 % (<5.7)
== END 2021-04-28 07:44 | disposition home or self-care (01) ==
PROVIDERS: PCP Family Medicine; Visit Provider Orthopaedic Surgery
DX: M17.11 Unilateral primary osteoarthritis, right knee (principal); Z01.818 Encounter for other preprocedural examination
CPT/HCPCS: 80048; 80307; 81003; 82040; 83036; 85025; 85610; 85730; 87081

== ENCOUNTER 2021-05-12 01:58 | Day surgery (SDC) | payer OTHER, SELFPAY ==
[2021-04-28 07:53] VITALS: BMI 30.1
[2021-04-28 08:41] VITALS: BP 137/70; PULSE 61; RESP 16; TEMP 36.7; O2SAT 100
[2021-05-12] VITALS (17 sets, daily range): BP systolic 102–152; BP diastolic 52–88; PULSE 59–113; RESP 14–18; TEMP 35.5–36.6; O2SAT 95–100
--- NOTE | ~2021-05-12 | XR_ITS ---
EXAMINATION: XR knee RT 2V DATE: 05/12/2021 09:48 INDICATION: Postoperative evaluation following right total knee arthroplasty. TECHNIQUE: Anteroposterior and lateral views of the right knee were obtained. COMPARISON: None. FINDINGS: Right total knee arthroplasty without patellar resurfacing appears well seated and in near anatomic a lignment. No fractures identified. Expected postoperative subcutaneous, intramedullary and intra-ar ticular gas. IMPRESSION: 1. Right total knee arthroplasty, negative for postoperative purposes. Reviewed, dictated and finalized at location A.
[2021-05-12] MEDS: LACTATED RINGERS 1,000 ML 30 ML IV CONT ×2 (07:00→09:33)
--- NOTE | 2021-05-12 07:18 | WPDANESEPPF ---
Anes - Initial Pre Proc Eval Procedure: Operation Date: 05/12/21 07:30 Proposed Procedures p Right Total Knee Arthroplasty - Juan Turpin MD Date/Time: 05/12/21 07:18 Surgeon: Juan Turpin MD Pre Op Diagnosis: right knee djd Patient Data Age: 60 Gender: F Height: 1.69 m Weight: 84.4 kg Last Vital Signs Temp 36.6 C 05/12/21 06:24 Pulse 93 05/12/21 06:24 Resp 16 05/12/21 06:24 BP 152/78 H 05/12/21 06:24 Pulse Ox 100 05/12/21 06:24 Allergies Allergy/AdvReac Type Severity Reaction Status Date / Time lisinopril Allergy Severe Swelling Verified 05/12/21 06:24 Home Medications Medication Instructions Recorded Confirmed Type estradiol 1 mg tablet 1 mg PO DAILY 04/15/20 05/12/21 History tramadol 50 mg tablet 50 mg PO Q6H PRN 05/27/20 05/12/21 History cholecalciferol (vitamin D3) 1,250 50,000 unit PO 2XW cap 10/08/20 05/12/21 History mcg (50,000 unit) capsule clonidine HCl 0.1 mg tablet 0.1 mg PO BID #60 tablet 10/08/20 05/12/21 Rx levothyroxine 50 mcg tablet 50 mcg PO DAILY #90 tablet 10/12/20 05/12/21 Rx acetaminophen 650 mg PO Q6H PRN 11/04/20 05/12/21 History clotrimazole-betamethasone 1 applic TOPICAL PRN PRN 11/04/20 05/12/21 History naproxen 500 mg tablet 500 mg PO BID PRN #60 tablet 02/18/21 05/12/21 Rx hydrocodone 7.5 mg-acetaminophen 1 tablet PO Q6H PRN #120 tablet 04/22/21 05/12/21 Rx 325 mg tablet diazepam 5 mg tablet 5 mg PO BID PRN #30 tablet 05/11/21 05/12/21 Rx oxycodone-acetaminophen 5 mg-325 1 tablet PO Q6H PRN #60 tablet 05/11/21 05/12/21 Rx mg tablet Patient hx anesthesia problems: none Family hx anesthesia problems: none Results Review: All pre-operative results and documents have been reviewed as part of the pre-operative evaluation. FOR[facility]LY [facility] Past Medical History Medical History Abnormal fasting glucose Acute sinusitis, unspecified BMI 30.0-30.9,adult Candidiasis Chronic interstitial cystitis Chronic left shoulder pain Chronic low back pain with right-sided sciatica Chronic neck pain Chronic nonallergic rhinitis Chronic pain of both knees Essential (primary) hypertension Hypothyroidism, unspecified Left knee DJD Multinodular goiter Obesity Osteoarthritis involving multiple joints on both sides of body Sore throat Vitamin D deficiency, unspecified Surgical History Surgical History Hx of arthroscopy of left knee Status post total left knee replacement Family History Family History Other Hypertension Social History Social History Second hand tobacco smoke exposure: No Additional smoking assessment comments: DENIES ANY FORM OF TOBACCO USE Alcohol intake: never Substance use: never Substance use type: does not use Living arrangements: with family Gender identity (if verbalized by the patient): Female Sexual Orientation (if Verbalized by the Patient): Straight or Heterosexual Spiritual care concerns: No Anes - Eval Final PreProcedure Day of Procedure 05/12/21 07:18 Patient weight: overweight Heart: regular rate and rhythm Lungs: clear to auscultation Airway: Mallampati scale class II Neurological: alert and oriented Last oral intake: >/= 8 hours ASA classification: III Emergent: no Anesthetic plan: proceed Anesthesia type and monitoring: general LMA and standard monitoring Results Review: All pre-operative results and documents have been reviewed as part of the pre-operative evaluation. Informed Consent: The patient's anesthetic plan and its attendant risks and benefits were discussed with the patient/family/POA. Questions were solicited and answers provided to the satisfaction of the patient/family/POA.
--- NOTE | 2021-05-12 07:22 | WPDHPUPDATE1 ---
History and Physical Update Update Date/Time: 05/12/21 07:22 History and Physical has been reviewed, including an updated exam of the patient. There are NO changes in the patient's condition. Risks, benefits, and alternatives have been discussed and questions answered. Patient agrees to proceed with procedure.
[2021-05-12] MEDS: TRANEXAMIC ACID 1,000MG/ISO100 1,000 MG/100 ML BAG 200 MG IVPB (07:31)
[2021-05-12] MEDS: ceFAZolin 2 GM/D5W 50 ML 2 GM/50 ML BAG IVPB ×3 (07:36→23:27)
--- NOTE | 2021-05-12 08:40 | WPDANESPNB ---
Anes - Peripheral Nerve Block Date/Time: 05/12/21 08:40 I have discussed with the patient/family/POA the placement of a peripheral nerve block for post-operative pain management, including associated risks, benefits, complications, and side effects. Alternative methods of post-operative analgesia were detailed. Questions were solicited and answers provided to the satisfaction of the patient/family/POA. Time-Out: A pre-procedural Time-Out was completed immediately before starting the procedure and confirmed: Patient Identification, Site, Procedure, Patient Position and the Availability of Requisite Equipment. Clinical Indications: Acute post-operative pain management requested by the operative surgeon. Nerve Block Insertion Note Anes-nerve block: adductor canal right Patient position: supine Skin prep: chlorhexidine Needle: 22 gauge, stimulating, insulated echogenic needle. Needle length: 80 mm Technique: ultrasound Technique comment: mid2mg [id number] Injectate: bupivacaine 0.5% with epi 5 mcg/ml (30ml no epi) Observations: tolerated well Complications: none Procedure start time:: 725 Procedure end time:: 732
[2021-05-12] MEDS: TRANEXAMIC ACID 1,000 MG/10 ML AMPUL 1000 MG IV PUSH (08:43)
[2021-05-12] MEDS: GENTAMICIN BONE CEMENT REFOBACIN 1 EACH TOPICAL (08:44)
--- NOTE | 2021-05-12 09:30 | W.PM.PROC2 ---
Procedure Note - Detailed Date of Procedure 05/12/21 Pre-op Diagnosis right knee djd Post-op Diagnosis same Procedure Performed R TKA Surgeon Juan Turpin MD Anesthesia general Description of Procedure THE RIGHT KNEE WAS PREPPED AND DRAPED IN THE STERILE FASHION. A MIDLINE SKIN INCISION WAS MADE. A MEDIAL PARAPATELLAR ARTHROTOMY WAS MADE. THE PATELLA WAS EVERTED. THERE WAS TRICOMPARTMENT DJD. THERE WAS MINIMAL PATELLA DJD. AN INTRAMEDULLARY KASSIDY WAS PLACED IN THE FEMUR. A DISTAL FEMORAL CUT WAS MADE IN 5 DEGREES OF VALGUS REMOVING APPROXIMATELY 9 MM OF BONE FROM THE DISTAL FEMUR. THE FEMUR WAS SIZED TO 62.5. A 62.5 FEMORAL CUTTING BLOCK WAS PLACED IN 3 DEGREES OF EXTERNAL ROTATION AND IN ALIGNMENT WITH CHANDRIKA'S LINE AND THE TRANSEPICONDYLAR AXIS. ANTERIOR POSTERIOR AND CHAMFER CUTS WERE MADE. THE CUTS WERE EXCELLENT. NEXT AN INTRAMEDULLARY CUTTING GUIDE WAS PLACED IN THE TIBIA. A TRANS TIBIAL CUT WAS MADE ALONG THE LONG AXIS OF THE TIBIA. APPROXIMATELY 12 MM OF BONE WAS REMOVED FROM THE HIGH SIDE OF THE TIBIA. THE TIBIA WAS THEN PLANED TO A SMOOTH SURFACE. POSTERIOR FEMORAL OSTEOPHYTES WERE REMOVED FROM THE FEMORAL CONDYLES. A 67 TIBIAL TRIAL WAS PLACED IN ALIGNMENT WITH THE 1/3 MEDIAL ASPECT OF THE TIBIAL TUBERCLE. THEN A 62.5 FEMORAL TRIAL COMPONENT WAS PLACED. BOTH HAD EXCELLENT FITS. EVENTUALLY A 12 MM CR POLYETHYLENE TRIAL COMPONENT WAS PLACED. THE KNEE WAS TAKEN THROUGH A RANGE OF MOTION. THE KNEE CAME OUT TO FULL EXTENSION. THERE WAS NO ABNORMAL TILT TO THE PATELLA. THERE WAS GOOD A/P AND VARUS/VALGUS STABILITY. THERE WAS NO EXCESSIVE ROLL BACK WITH FLEXION. THE TRIAL COMPONENTS WERE REMOVED. THEN A 62.5 FEMORAL COMPONENT AND 67 TIBIAL COMPONENT WITH A 12 CR POLYETHYLENE COMPONENT WERE CEMENTED INTO PLACE. ONCE THE CEMENT WAS HARD THE KNEE WAS TAKEN THROUGH A ROM AGAIN AND FOUND TO BE STABLE WITH NO PATELLA TILT NO EXCESSIVE ROLL BACK WITH FLEXION AND GOOD STABILITY WITH COMPLETE AND FULL EXTENSION. THE KNEE WAS IRRIGATED WITH STERILE BETADINE AND WATER FOR ABOUT 3 MINUTES. THE BLEEDERS WERE CAUTERIZED. THE ARTHROTOMY WAS REPAIRED WITH NUMBER 1 VICRYL. THE SUB CUTANEOUS LAYER WITH 2-0 VICRYL AND THE SKIN WITH 2-0 QUIL AND DERMABOND AND A STERILE DRESSING WAS APPLIED. PATIENT WAS EXTUBATED. Estimated Blood Loss -150.0 Pathology none sent Complications No immediate complications Condition stable Disposition PACU
[2021-05-12] MEDS: fentaNYL CITRATE INJ (*CRX) 100 MCG/2 ML VIAL 25 MCG IV PUSH ×8 (09:40→10:13)
[2021-05-12] MEDS: KETOROLAC 30 MG/ML VIAL (*BKC) IV PUSH (10:10)
--- NOTE | 2021-05-12 10:11 | SUR.PREOP ---
[id number] pt refuses medications in pill form,unable to swallow pills.dr pritchard aware
--- NOTE | 2021-05-12 11:04 | PC.NURSE ---
This patient, Key Hughes, was admitted to Medical Room 247-. Patient/family oriented to hospital policies and general routines including ID bracelet, bed and alarms, visiting hours, pain management, procedures, bathroom and other care routines, personal items, smoking policy, room service/diet, and visiting hours. Information on how to activate the Rapid Response Team has been discussed. Patient/Family are encouraged to report perceived risks to care and to ask questions if they do not understand what they are told or what they should do.
[2021-05-12] MEDS: oxyCODONE/ACETAMINOPHEN (*CRX) 5-325 MG TABLET 1 TABLET PO ×2 (13:05→17:19)
[2021-05-12] MEDS: CELECOXIB 200 MG CAPSULE PO (17:19)
[2021-05-12] MEDS: cloNIDine HCL 0.1 MG TABLET PO (17:19)
[2021-05-12] MEDS: FAMOTIDINE 20 MG TABLET PO (20:31)
[2021-05-13 03:58] VITALS: BP 107/54; PULSE 61; RESP 17; TEMP 36.4; O2SAT 100
[2021-05-13] MEDS: oxyCODONE/ACETAMINOPHEN (*CRX) 5-325 MG TABLET 1 TABLET PO ×2 (05:15→10:22)
[2021-05-13 05:33] LABS: Basophils Percent Auto 0.1 % (0.2-1.2); Hematocrit 30.6 % (37.0-47.0); Immature Granulocyte Absolute 0.05 K/mm3 (0.00-0.031); Immature Granulocyte Percent A 0.4 % (0-0.5); Lymphocytes Absolute Auto 1.44 K/mm3 (0.9-3.2); Lymphocytes Percent Auto 12.9 % (18.3-44.2); Mean Corpuscular HGB Conc 32.7 g/dl (32-36); Mean Corpuscular Hemoglobin 27.5 pg (26-34); Mean Corpuscular Volume 84.3 fl (80-100); Mean Platelet Volume 10.5 fl (7.4-10.4); Monocytes Absolute Auto 1.2 K/mm3 (0.1-0.6); Monocytes Percent Auto 10.3 % (2.6-8.5); Neutrophils Absolute Auto 8.5 K/mm3 (1.3-6.7); Neutrophils Percent Auto 76.3 % (45.5-73.1); Platelet Count Result 179 k/mm3 (150-375); Red Blood Count 3.63 M/mm3 (4.2-5.4); Red Cell Distribution Width 14.6 % (11.5-14.5); White Blood Count 11.2 K/mm3 (4.5-10.0)
[2021-05-13 05:53] LABS: Anion Gap 5 mmol/L (8-16); Blood Urea Nitrogen 10 mg/dL (7-17); Calcium 8.4 mg/dL (8.4-10.2); Carbon Dioxide 29 mmol/L (22-30); Chloride 104 mmol/L (98-107); Estimated CRCL calculation 96 ml/min; Estimated Glomerular Filt Rate > 60; Glucose 117 mg/dL (65-110); Potassium 3.8 mmol/L (3.4-5.0); Sodium 138 mmol/L (137-145)
[2021-05-13] MEDS: LEVOTHYROXINE SODIUM 50 MCG TABLET PO (06:00)
--- NOTE | 2021-05-13 09:04 | PM.PNORT ---
Progress Note: A&P Assessment and Plan (1) S/P total knee arthroplasty: Qualifiers: Laterality: right Qualified Code(s): Z96.651 - Presence of right artificial knee joint Code(s): Z96.659 - Presence of unspecified artificial knee joint Status: Acute Assessment and Plan: POD #1: Right TKA Continue PT/OT. WBAT. Walker. Pain control. Ice Knee. DVT prophyalxis with Aspirin. SCDs. Incentive Spirometry. Monitor dressing. Change prior to d/c. Dispo: Home with Home Health likely today pending progress with PT/OT. Subjective Subjective Date/Time Seen: 05/13/ 09:04 Post Op day: 1 Principal diagnosis: Right Knee DJD Interval history: POD #1: Right TKA Patient feeling very well. Pain well controlled. Working with PT/OT. Up at the bedside washing. Hopeful for d/c home today. No new concerns. Review of Systems Review of Systems: All systems reviewed & are unremarkable except as noted in HPI and below Constitutional: Constitutional: Denies fever(s) and Denies headache(s) ENT: Denies headache(s) Cardiovascular: Cardiovascular: Denies chest pain, Denies diaphoresis, Denies palpitations and Denies dyspnea Respiratory: Respiratory: Denies dyspnea Gastrointestinal: Gastrointestinal: Denies abdominal pain, Denies constipation, Denies nausea and Denies vomiting Genitourinary: Genitourinary: Reports nocturia and Denies dysuria Musculoskeletal: Musculoskeletal: Reports arthralgias (Right Knee ) and Reports joint swelling (Right Knee ) Neurologic: Denies headache(s) Endocrine: Endocrine: Denies palpitations Exam Const: General: comfortable and no acute distress Resp: Effort & Inspection: normal respiratory effort Cardio: Rate: regular rate Rhythm: regular rhythm GI: GI Palp: Yes Soft to palpation, No Tenderness to palpation present (GI) and No Guarding due to palpation present (GI) Skin: Wounds: wounds noted Other: Incision c/d/i. No surrounding redness/warmth. No hematoma. Mild ecchymosis. No wound dehiscence Neuro: Cognition (Neuro): normal cognition Other: NV intact aside from block. Moves toes. Sensation intact to light touch. +ankle dorsiflexion/plantarflexion. Extrem: Right lower extremity: normal to inspection, full ROM (ROM limited due to recent surgical intervention ), knee Details: tenderness (diffuse, mild ) and swelling (diffuse, mild ), lower leg (Negative Emelia's Sign ), ankle (+ankle dorsiflexion/plantarflexion. ) and foot (2+ pedal pulses. +ankle dorsiflexion/plantarflexion. Moves toes. ) Left lower extremity: normal to inspection and knee (previous left TKA. Incision well healed. No c/o pain ) Psych: Mental Status: mental status grossly normal Objective Data Vital Signs Vital Signs: Vital Signs - 24 hr 05/12/21 09:33 05/12/21 09:45 05/12/21 10:00 Temperature 36.6 C Pulse Rate 96 113 H 106 H Respiratory Rate 16 16 14 Blood Pressure 121/62 139/84 140/87 Pulse Oximetry 100 100 100 05/12/21 10:15 05/12/21 10:30 05/12/21 10:45 Temperature Pulse Rate 92 89 89 Respiratory Rate 14 14 14 Blood Pressure 133/88 126/78 114/77 Pulse Oximetry 100 100 100 05/12/21 10:52 05/12/21 11:00 05/12/21 11:15 Temperature 36.1 C L 36.2 C L 36.1 C L Pulse Rate 90 97 98 Respiratory Rate 14 16 16 Blood Pressure 141/75 H 148/77 H 124/67 Pulse Oximetry 100 100 95 05/12/21 11:45 05/12/21 12:45 05/12/21 18:00 Temperature 36.1 C L 36.3 C L 36.2 C L Pulse Rate 95 90 77 Respiratory Rate 16 16 16 Blood Pressure 132/65 133/79 115/61 Pulse Oximetry 99 100 98 05/12/21 19:23 05/12/21 20:00 05/12/21 20:26 Temperature 35.5 C L Pulse Rate 72 72 72 Respiratory Rate 18 18 18 Blood Pressure 130/63 Pulse Oximetry 100 99 99 05/12/21 23:27 05/13/21 03:58 Temperature 35.8 C L 36.4 C Pulse Rate 59 L 61 Respiratory Rate 16 17 Blood Pressure 102/52 L 107/54 L Pulse Oximetry 99 100 Intake/Output Intake/Output: Intake & Output 05/10/21 05/11/2104/24
--- NOTE | 2021-05-13 09:06 | WPDANESPN ---
Anes - Prog Note Post-Op Date/Time: 05/13/21 09:06 Cardiovascular status: normal Respiratory status: normal Airway patency: baseline Mental status: baseline Post-Op hydration status: normal Vital Signs: Last Vital Signs Temp 97.6 F 05/13/21 03:58 Pulse 61 05/13/21 03:58 Resp 17 05/13/21 03:58 BP 107/54 L 05/13/21 03:58 Pulse Ox 100 05/13/21 03:58 Pain Score (VAS): 09/02 I/O: Intake & Output 05/12/21 05/13/21 05/13/21 23:59 07:59 15:59 Intake Total 340 1440 120 Balance 340 1440 120 Laboratory Tests 05/13/21 05:11 05/13/21 05:11 05/13/21 05/13/21 05:11 05:11 WBC 11.2 H RBC 3.63 L Hgb 10.0 L Hct 30.6 L MCV 84.3 MCH 27.5 MCHC 32.7 RDW 14.6 H Plt Count 179 MPV 10.5 H Immature Gran % (Auto) 0.4 Neut % (Auto) 76.3 H Lymph % (Auto) 12.9 L [place] % (Auto) 10.3 H Eos % (Auto) 0.0 Baso % (Auto) 0.1 L Lymph # (Auto) 1.44 [place] # (Auto) 1.2 H Eos # (Auto) 0.0 Baso # (Auto) 0.0 Abs Immat Gran (auto) 0.05 H Absolute Neuts (auto) 8.5 H Absolute Nucleated RBC 0.0 Nucleated RBC % 0.0 Sodium 138 Potassium 3.8 Chloride 104 Carbon Dioxide 29 Anion Gap 5 L BUN 10 D Creatinine 0.60 L Estim Creat Clear Calc 96 Estimated GFR > 60 Glucose 117 H Calcium 8.4 Post-procedural complaints: none Patient Feedback: Patient satisfied with anesthetic care.
[2021-05-13] MEDS: ceFAZolin 2 GM/D5W 50 ML 2 GM/50 ML BAG IVPB (10:05)
[2021-05-13] MEDS: ASPIRIN 325 MG ENTERIC TABLET 650 MG PO (10:06)
[2021-05-13] MEDS: cloNIDine HCL 0.1 MG TABLET PO ×2 (10:06→17:13)
[2021-05-13] MEDS: FAMOTIDINE 20 MG TABLET PO (10:07)
[2021-05-13] MEDS: CELECOXIB 200 MG CAPSULE PO ×2 (10:07→17:13)
[2021-05-13 10:20] VITALS: BP 119/78; PULSE 68; RESP 18; TEMP 36.8; O2SAT 100
[2021-05-13 14:05] VITALS: BP 110/56; PULSE 76; RESP 18; TEMP 36.7; O2SAT 100
--- NOTE | 2021-05-13 14:27 | PM.DS ---
DS: Admitting Diagnosis Discharge Date 05/13/21 Admitting Diagnosis Right Knee DJD DS: Discharge Diagnosis Discharge Diagnosis (1) S/P total knee arthroplasty: Qualifiers: Laterality: right Qualified Code(s): Z96.651 - Presence of right artificial knee joint Code(s): Z96.659 - Presence of unspecified artificial knee joint Status: Acute Assessment and Plan: POD #1: Right TKA Continue PT/OT. WBAT. Walker. Pain control. Ice Knee. DVT prophylaxis with Aspirin. SCDs. Incentive Spirometry. Monitor dressing. Change prior to d/c. Dispo: Home with Home Health likely today pending progress with PT/OT. DS: Summary Hospital Course Reason for hospitalization: Right TKA Hospital Course: 60-year-old female admitted status post right total knee arthroplasty for postoperative pain control, physical and occupational therapy and medical management. Patient progressed very well on postop day 1. Her pain is very well controlled and she worked well with PT and OT. She has been cleared to be discharged home with home health at this point. She will follow up in outpatient orthopedic clinic in approximately 3 weeks. Status at Discharge Functional status at discharge: uses cane/walker Overall status at discharge: patient is not back to baseline Time Spent with Patient Time attestation: Total time spent providing and/or coordinating discharge services: Time spent: Less than 30 minutes Exam Const: General: comfortable and no acute distress Resp: Effort & Inspection: normal respiratory effort Cardio: Rate: regular rate Rhythm: regular rhythm Skin: Wounds: wounds noted Other: Incision c/d/i. No surrounding redness/warmth. No hematoma. Mild ecchymosis. No wound dehiscence Neuro: Cognition (Neuro): normal cognition Other: NV intact aside from block. Moves toes. Sensation intact to light touch. +ankle dorsiflexion/plantarflexion. Extrem: Right lower extremity: normal to inspection, full ROM (ROM limited due to recent surgical intervention ), knee Details: tenderness (diffuse, mild ) and swelling (diffuse, mild ), lower leg (Negative Emelai's Sign ), ankle (+ankle dorsiflexion/plantarflexion. ) and foot (2+ pedal pulses. +ankle dorsiflexion/plantarflexion. Moves toes. ) Left lower extremity: normal to inspection and knee (previous left TKA. Incision well healed. No c/o pain ) Psych: Mental Status: mental status grossly normal DS: Data Data Completed and Pending Labs on day of discharge: Labs from last 24 hours 05/13/21 05/13/21 05:11 05:11 WBC 11.2 H RBC 3.63 L Hgb 10.0 L Hct 30.6 L MCV 84.3 MCH 27.5 MCHC 32.7 RDW 14.6 H Plt Count 179 MPV 10.5 H Immature Gran % (Auto) 0.4 Neut % (Auto) 76.3 H Lymph % (Auto) 12.9 L [place] % (Auto) 10.3 H Eos % (Auto) 0.0 Baso % (Auto) 0.1 L Lymph # (Auto) 1.44 [place] # (Auto) 1.2 H Eos # (Auto) 0.0 Baso # (Auto) 0.0 Abs Immat Gran (auto) 0.05 H Absolute Neuts (auto) 8.5 H Absolute Nucleated RBC 0.0 Nucleated RBC % 0.0 Sodium 138 Potassium 3.8 Chloride 104 Carbon Dioxide 29 Anion Gap 5 L BUN 10 D Creatinine 0.60 L Estim Creat Clear Calc 96 Estimated GFR > 60 Glucose 117 H Calcium 8.4 Discharge Plan Discharge Patient Disposition: Home, Self-Care Discharge Instructions: Post Op Total Knee Replacement Instructions Dr. Juan Turpin [phone] ? Your dressing will be changed prior to your discharge. You will be sent home with one additional dressing to be changed in 5 days by the home health RN. Your oxana will be removed on the 14th day after surgery and steri-strips will be placed. ? You may shower with your dressing but do not submerge in a bath tub. ? Do not drive or operate machinery until you are released by Dr. Turpin. ? Do not walk without a walker for any reason until you are released by Dr. Turpin. ? Continue to use your ice machine. Please use a towel or
[2021-05-13] MEDS: oxyCODONE HCL (*CRX) 5 MG TAB IR 10 MG PO (17:12)
== END 2021-05-13 17:45 | disposition home or self-care (01) ==
LOC: ANHSURGERY 06:04 → ANH2MED 05-13 08:23
PROVIDERS: PCP Family Medicine; Visit Provider Orthopaedic Surgery
PROC: (CPT 27447; principal; 2021-05-12 07:30)
DX: M17.11 Unilateral primary osteoarthritis, right knee (principal); G89.18 Other acute postprocedural pain; I10 Essential (primary) hypertension; E03.9 Hypothyroidism, unspecified; E04.2 Nontoxic multinodular goiter; E55.9 Vitamin D deficiency, unspecified; G89.29 Other chronic pain; M54.2 Cervicalgia; M25.512 Pain in left shoulder; M54.41 Lumbago with sciatica, right side; Z79.891 Long term (current) use of opiate analgesic
CPT/HCPCS: 27447; 64447; 36415; 73560; 80048; 80307; 81003; 82040; 83036; 85025; 85610; 85730; 86850; 86900; 86901; 87081; 97110; 97116; 97161; 97165; 97530; 97535; A9270; C1713; C1776; J0131; J0171; J0690; J1100; J1885; J2250; J2270; J2370; J2405; J2704; J2795; J3010; J7120

== ENCOUNTER 2021-06-03 10:20 | Outpatient (CLI) | payer OTHER, SELFPAY ==
--- NOTE | ~2021-06-03 | US_ITS ---
EXAMINATION: US venous doppler LE RT DATE: 06/03/2021 10:55 INDICATION: Right lower limb pain TECHNIQUE: Rhodes scale images without and with compression and Doppler images of the right lower extre mity veins were obtained. COMPARISON: None FINDINGS: The right common femoral vein, profunda femoral vein, femoral vein, popliteal vein, peronea l trunk, posterior tibial veins, and greater saphenous vein are patent. IMPRESSION: 1. Patent right lower extremity veins. No evidence of deep venous thrombosis. Reviewed, dictated and finalized at location B. MACHINE OPERATOR
== END 2021-06-03 10:21 | disposition home or self-care (01) ==
LOC: ANHIMG 10:22
PROVIDERS: PCP Family Medicine; Visit Provider Orthopaedic Surgery
DX: M79.89 Other specified soft tissue disorders (principal)
CPT/HCPCS: 93971

== ENCOUNTER → 2021-07-20 15:41 | Outpatient (CLI) | payer OTHER, SELFPAY ==
--- NOTE | ~2021-07-20 | XR_ITS ---
EXAMINATION: XR lumbar spine min 4V DATE: 07/20/2021 16:01 INDICATION: Low back pain TECHNIQUE: Anteroposterior, lateral, and bilateral oblique views of the lumbar spine, and cone-down l ateral view of the lumbosacral junction were obtained. COMPARISON: 01/24/2004 FINDINGS: There are 2 mm of unchanged retrolisthesis of L5 on S1. The vertebral body heights are main tained. There is mild loss of intervertebral disc space height at L5-S1. Small degenerative osteophyt es project from the anterior endplates of multiple vertebral bodies. There is mild facet osteoarthrit is. IMPRESSION: 1. Mild lumbar spondylosis without acute findings or significant interval change. Reviewed, dictated and finalized at location F. ITY CONTROL OPERATOR IMPRESSION: 1. Mild lumbar spondylosis without acute findings or significant interval hermelindo perdomo
== END ==
PROVIDERS: PCP Family Medicine; Visit Provider Family Medicine
DX: M54.41 Lumbago with sciatica, right side (principal); M47.896 Other spondylosis, lumbar region
CPT/HCPCS: 72110

== ENCOUNTER 2021-12-16 06:36 | Outpatient (CLI) | payer OTHER, SELFPAY ==
--- NOTE | ~2021-12-16 | MR_ITS ---
EXAMINATION: MR lumbar spine wo con DATE: 12/16/2021 07:14 INDICATION: Low back pain, unspecified. TECHNIQUE: Magnetic resonance imaging (MRI) of the lumbar spine was performed without intravenous con trast. Sequences included sagittal T2-weighted FSE, sagittal T2-weighted FS FSE, sagittal T1-weighted FSE, and axial T2-weighted FSE. COMPARISON: Lumbar spine radiographs 07/20/2021 FINDINGS: Bone alignment is normal. There is mild chronic anterior wedging of T11-L3 vertebral bodies , likely physiologic. There is mildly decreased disc height at L2-L3 and L3-L4 and moderately decreas ed disc height at L5-S1. The distal spinal cord signal intensity is normal. The conus medullaris is a t L1. The following disc levels are specifically discussed: L1-L2: The disc does not extend beyond the endplate margin. There is mild bilateral facet joint osteo arthritis. There is no neural foraminal stenosis. There is no central canal stenosis. L2-L3: The disc is bulging and has an annular fissure. There is moderate bilateral facet joint osteoa rthritis. There is mild right and moderate left neural foraminal stenosis. There is mild central delia l stenosis. L3-L4: The disc is bulging and has an annular fissure. There is moderate bilateral facet joint osteoa rthritis. There is moderate right and mild left neural foraminal stenosis. There is mild central delia l stenosis. L4-L5: The disc is bulging. There is severe bilateral facet joint osteoarthritis. There is mild bilat eral neural foraminal stenosis. There is mild central canal stenosis. L5-S1: The disc is bulging and has an annular fissure. There is mild bilateral facet joint osteoarthr itis. There is mild bilateral neural foraminal stenosis. There is mild central canal stenosis. IMPRESSION: 1. Moderate lumbar spondylosis. Reviewed, dictated and finalized at location A.
== END 2021-12-16 06:37 | disposition home or self-care (01) ==
LOC: ANHIMG 06:41
PROVIDERS: PCP Family Medicine; Visit Provider Orthopaedic Surgery
DX: M47.817 Spondylosis without myelopathy or radiculopathy, lumbosacral region (principal); M48.07 Spinal stenosis, lumbosacral region
CPT/HCPCS: 72148

== ENCOUNTER 2022-02-16 07:29 | Outpatient (CLI) | payer OTHER, SELFPAY ==
--- NOTE | ~2022-02-16 | DEXA_ITS ---
Bone Density Report Name: CINTHYA STEVENSON Age: 61 Sex: Female Ethnicity: Black Date of : 1960 Indication: postmenopausal; screening for osteoporosis; hysterectomy; Referring Provider: RACHEL ARZOLA Study: Bone densitometry was performed. Exam Date: February 16, 2022 Accession number: [id number] Bone Density: Region BMD T-score Z-score Classification AP Spine(L1-L4) 1.062 0.1 0.7 Normal Femoral Neck (Left) 0.801 -0.4 0.0 Normal Total Hip (Left) 0.979 0.3 0.4 Normal Femoral Neck (Right) 0.862 0.1 0.4 Normal Total Hip (Right) 1.002 0.5 0.6 Normal Total Hip Mean 0.990 0.4 0.5 Normal World Health Organization criteria for BMD impression classify patients as: Normal (T-score at or above -1.0), Osteopenia (T-score between -1.0 and -2.5), or Osteoporosis (T-score at or below -2.5). 10-year Fracture Risk: FRAX not reported because: All T-scores for Spine Total, Hip Total, Femoral Neck at or above -1.0 Previous Exams: Region Exam Age BMD T-score BMD Change BMD Change Date g/cm2 vs Baseline vs Previous AP Spine (L1-L4) 02/16/2022 61 1.062 0.1 -0.008 (-0.8%) 0.006 (0.5%) 04/17/2019 58 1.057 0.1 -0.014 (-1.3%) -0.014 (-1.3%) 07/18/2015 54 1.071 0.2 Total Hip(Left) 02/16/2022 61 0.979 0.3 -0.058 (-5.6%) -0.036 (-3.6%) 04/17/2019 58 1.015 0.6 -0.022 (-2.1%) -0.022 (-2.1%) 07/18/2015 54 1.036 0.8 Total Hip(Right) 02/16/2022 61 1.002 0.5 -0.018 (-1.7%) 0.002 (0.2%) 04/17/2019 58 0.999 0.5 -0.020 (-2.0%) -0.020 (-2.0%) 07/18/2015 54 1.019 0.6 *Denotes significance at 95% confidence level, LSC for AP Spine = 0.022 g/cm2, LSC for Total Hip = 0.027 g/cm2 Clinical Information Provided by Patient: Has used the following medications: HRT (i.e. estrogen/hormone therapy), Vitamin D Has the following medical conditions: Hysterectomy Patient maximum height was 65.5 Menopause Age: 38 Onset of menses at age 15 Number of children 0 Impression: The patient has normal bone mass. The BMD for the Total Hip(Left) decreased, changing by -3.6% since the last DXA exam. Discussion: BONE DENSITY IS ABOVE THE MINIMUM DESIRABLE LEVEL AT ALL SKELETAL SITES TESTED. This patient?s bone mineral density is above the minimum desirable level (T-score -1.0 or better) at all sites measured. The patient should follow a healthful lifestyle (good nutrition with adequate calcium and vitamin D, and appr
--- NOTE | ~2022-02-16 | MM_ITS ---
EXAMINATION: MM screening [facility] w lorene HISTORY: Screening mammogram TECHNIQUE: Craniocaudal and mediolateral oblique 3-D tomosynthesis images were obtained and synthetic 2-D images were generated. CAD analysis was submitted and interpreted. COMPARISON: 02/11/2021, 12/25/2019, 12/18/2018 bilateral screening mammogram examinations BREAST PARENCHYMAL COMPOSITION: There are scattered areas of fibroglandular density.. FINDINGS: There is no evidence of suspicious mass, calcification, or architectural distortion to sugg est malignancy in either breast. There has been no suspicious interval change. IMPRESSION: 1. No mammographic evidence of malignancy. 2. Recommend routine screening mammography in one year. BI-RADS Category 1: Negative Reviewed, dictated and finalized at location A.
== END 2022-02-16 07:30 | disposition home or self-care (01) ==
LOC: ANHIMG 07:30
PROVIDERS: PCP Family Medicine; Visit Provider Obstetrics & Gynecology Gynecology
DX: Z12.31 Encounter for screening mammogram for malignant neoplasm of breast (principal); Z78.0 Asymptomatic menopausal state
CPT/HCPCS: 77063; 77067; 77080

== ENCOUNTER 2023-02-17 14:27 | Outpatient (CLI) | payer OTHER, SELFPAY ==
--- NOTE | ~2023-02-17 | MM_ITS ---
EXAMINATION: MM screening [facility] BI w lorene HISTORY: Screening mammogram TECHNIQUE: Craniocaudal and mediolateral oblique 3-D tomosynthesis images were obtained and synthetic 2-D images were generated. CAD analysis was submitted and interpreted. COMPARISON: 02/16/2022, 02/11/2021, 12/25/2019 BREAST PARENCHYMAL COMPOSITION: There are scattered areas of fibroglandular density. FINDINGS: No suspicious mass, calcification, or architectural distortion are identified in either [place] ast to suggest malignancy. There has been no suspicious interval change. IMPRESSION: 1. No mammographic evidence of malignancy. 2. Recommend routine screening mammography in one year. BI-RADS Category 1: Negative Reviewed, dictated and finalized at location A.
== END 2023-02-17 14:28 | disposition home or self-care (01) ==
PROVIDERS: PCP Family Medicine; Visit Provider Obstetrics & Gynecology Gynecology
DX: Z12.31 Encounter for screening mammogram for malignant neoplasm of breast (principal)
CPT/HCPCS: 77063; 77067

== ENCOUNTER 2024-02-02 08:08 | Outpatient (CLI) | payer OTHER, SELFPAY ==
--- NOTE | ~2024-02-02 | MM_ITS ---
EXAMINATION: MM screening [facility] BI w lorene HISTORY: Screening TECHNIQUE: Craniocaudal and mediolateral oblique 3-D tomosynthesis images were obtained and synthetic 2-D images were generated. CAD analysis was submitted and interpreted. COMPARISON: Comparison to multiple prior studies sequentially, with oldest reviewed study dated 12/16. BREAST PARENCHYMAL COMPOSITION: Not dense: There are scattered areas of fibroglandular density. FINDINGS: There is no evidence of suspicious mass, calcification, or architectural distortion to sugg est malignancy in either breast. There has been no suspicious interval change. IMPRESSION: 1. No mammographic evidence of malignancy. 2. Recommend routine screening mammography in one year. BI-RADS Category 1: Negative Reviewed, dictated and finalized at location B.
== END 2024-02-02 08:09 | disposition home or self-care (01) ==
PROVIDERS: PCP Family Medicine; Visit Provider Nurse Practitioner Women's Health
DX: Z12.31 Encounter for screening mammogram for malignant neoplasm of breast (principal)
CPT/HCPCS: 77063; 77067

== ENCOUNTER 2024-04-01 18:26 | Emergency (ER) | payer SELFPAY ==
--- NOTE | ~2024-04-01 | CT_ITS ---
Clinical Indication: Back pain CT Scan of the Chest, Abdomen, and Pelvis with Contrast: Technique: Contiguous sections were acquired throughout the chest, abdomen, and pelvis after intraven ous administration of 100 cc of Omnipaque 350. Dose reduction technique was used on this scan by uti rajeeving automated exposure control and iterative reconstruction technique. The dose-length product (DL P) was 1029.86 mGy-cm. Findings: There is no evidence of any significant mediastinal, hilar or axillary lymphadenopathy. The mediastin al soft tissues appear normal. No pulmonary embolus seen. No aortic aneurysm or dissection. There is no evidence of pleural or pericardial effusion. The lungs are clear. No pulmonary nodules or infiltrates are noted. Probable diffuse hepatic steatosis. The spleen, pancreas, gallbladder, adrenals and kidneys are withi n normal limits. No evidence of aortic aneurysm or dissection. No lymphadenopathy. No bowel obstruction or bowel wall thickening. There is no evidence to suggest acute appendicitis. Urinary bladder is unremarkable. No pelvic mass seen. No ascites. Impression: No acute abnormalities seen. Diffuse hepatic steatosis. Reviewed, dictated and finalized at [facility]. Impression: No acute abnormalities seen. Diffuse hepatic steatosis.
[2024-04-01 18:30] VITALS: BP 199/86
[2024-04-01 18:31] VITALS: BP 224/98; PULSE 122; RESP 16; TEMP 36.6; O2SAT 100
--- NOTE | 2024-04-01 18:36 | ECG_ITS ---
Test Date: 2024-04-01 18:39:14 Measurements Intervals [place] Rate: 119 P: 61 HI: 148 QRS: -50 QRSD: 99 T: 80 QT: 339 QTc: 478 Interpretive Statements SINUS TACHYCARDIA POSSIBLE RIGHT ATRIAL ENLARGEMENT LEFT ATRIAL ENLARGEMENT INCOMPLETE RIGHT BUNDLE BRANCH BLOCK LEFT ANTERIOR FASCICULAR BLOCK BORDERLINE ST-T WAVE ABNORMALITY- HIGH LATERAL LEADS ABNORMAL ECG No previous ECG available for comparison Electronically Signed On 04-01-2024 20:12:19 CDT by Neal Holden D.O.
[2024-04-01 22:48] VITALS: BP 175/92; PULSE 101; RESP 18; TEMP 36.3; O2SAT 100
--- NOTE | 2024-04-01 22:57 | ECG_ITS ---
Test Date: 2024-04-01 23:05:58 Measurements Intervals [place] Rate: 98 P: 63 NH: 178 QRS: -37 QRSD: 99 T: 71 QT: 298 QTc: 381 Interpretive Statements SINUS RHYTHM LEFT AXIS DEVIATION POSSIBLE LEFT ATRIAL ENLARGEMENT INCOMPLETE RIGHT BUNDLE BRANCH BLOCK DELAYED PRECORDIAL R/S TRANSITION NONSPECIFIC ST & T-WAVE ABNORMALITY- HIGH LATERAL LEADS BASELINE ARTIFACT- I, II, III, AVR, AVL, AVF, V1-V3 BORDERLINE ECG Compared to ECG 04/01/2024 18:39:14 HEART RATE HAS DECREASED Electronically Signed On 04-02-2024 06:25:21 CDT by Neal Holden D.O.
--- NOTE | 2024-04-01 22:58 | ED.RECABL ---
HPI - Recheck/Abnormal Lab/Rx General Chief Complaint: Recheck/Abnormal Lab/Rx Stated Complaint: high blood pressure Time Seen by Provider: 04/01/24 22:41 History of Present Illness HPI narrative: This is a 63-year-old female with a past medical history significant for hypertension, back surgery, chronic pain, hypothyroidism. Today she presents to the emergency depart with a chief complaint of low back pain, thigh pain and rising blood pressure. Patient states she has a history of hypertension that she takes either chlorthalidone or clonidine for. No recent titration to her medications. Does not take any other additional agents. She states that she woke up today feeling some low back pain that she attributes to just muscle spasm and injuring herself but she did not have any direct trauma, lifting injuries or other recent mobility issues. The pain started traveling from her low back down into the anterior part of her left thigh and the lateral aspect of her left side. Denies any paresthesias in the leg, no nausea, vomiting, chest pain, shortness a breath, headache, vision changes. She states the pain is tolerable right now and only worse with certain positions. No history of aortic pathology, cardiac pathology other than hypertension. Was otherwise in her normal state of health yesterday. Has been noted to have hypertension in the past but never had a blood pressure in the 200 before. Related Data Home Medications Medication Instructions Recorded Confirmed estradiol 1 mg tablet (Estrace) 1 mg PO DAILY 04/15/20 11/28/23 cholecalciferol (vitamin D3) 1,250 50,000 unit PO 2XW 10/08/20 11/28/23 mcg (50,000 unit) capsule acetaminophen 650 mg 650 mg PO Q6H PRN Pain 11/04/20 11/28/23 tablet,extended release diazepam 5 mg tablet (Valium) 5 mg PO DAILY PRN anxiety 12/13/21 11/28/23 vitamin E (dl, acetate) 180 mg 180 mg PO DAILY 09/28/22 11/28/23 (400 unit) capsule Allergies Allergy/AdvReac Type Severity Reaction Status Date / Time lisinopril Allergy Severe Swelling Verified 10/06/22 13:55 Review of Systems Review of Systems: As reviewed above in HPI [facility] Past Medical History Medical History Abnormal fasting glucose Glucose 94 with hemoglobin A1c 5.7 on 12/02/2021. Fasting glucose 96 with hemoglobin A1c 5.9 on 11/17/2022. Acute sinusitis, unspecified Anemia Hemoglobin 13.5 with hematocrit 43.4, iron 86 with 27% saturation and ferritin 60 with vitamin B12 844 and folic acid 13.6 on 12/02/2021. Hemoglobin 12.4, iron 113, 34% saturation, ferritin 89, vitamin B12 1055, folic acid 8.4 on 11/17/2022. Anxiety BMI 30.0-30.9,adult BMI 31.0-31.9,adult BMI 32.0-32.9,adult BMI 33.0-33.9,adult BMI 34.0-34.9,adult Breast cancer screening by mammogram normal mammogram 02/17/2023. Normal mammogram 02/02/2024. Candidiasis Cellulitis Chronic interstitial cystitis Urinalysis normal on 11/17/2022. Chronic left shoulder pain Chronic low back pain with right-sided sciatica Chronic neck pain Chronic nonallergic rhinitis Chronic pain of both knees Essential (primary) hypertension Gastro-esophageal reflux disease without esophagitis (~08/2021) Hypothyroidism, unspecified TSH 0.5407, free T4 at 1.11 on 11/17/2022. Left knee DJD Multinodular goiter Obesity Obesity (BMI 30.0-34.9) Osteoarthritis involving multiple joints on both sides of body Salivary gland inflammation (04/19/23) right side Sore throat Urinary urgency Vitamin D deficiency, unspecified Level normal at 75.8 on 11/17/2022. Surgical History Surgical History Hx of arthroscopy of left knee S/P total knee arthroplasty Status post total left knee replacement Family History Family History Other Hypertension Social History Social History (Reviewed 04/01/24 @ 22:59 by Alex
[2024-04-01 22:59] VITALS: BP 175/92; PULSE 100; RESP 16; TEMP 36.6; O2SAT 100
[2024-04-01 23:23] LABS: Basophils Percent Auto 0.4 % (0.2-1.2); Eosinophils Percent Auto 0.4 % (0-4.4); Hematocrit 44.2 % (37.0-47.0); Hemoglobin 14.3 g/dL (12.0-15.0); Lymphocytes Absolute Auto 3.17 K/mm3 (0.9-3.2); Lymphocytes Percent Auto 43.7 % (18.3-44.2); Mean Corpuscular HGB Conc 32.4 g/dl (32-36); Mean Corpuscular Hemoglobin 27.4 pg (26-34); Mean Corpuscular Volume 84.8 fl (80-100); Mean Platelet Volume 10.5 fl (7.4-10.4); Monocytes Absolute Auto 0.7 K/mm3 (0.1-0.6); Monocytes Percent Auto 9.9 % (2.6-8.5); Neutrophils Absolute Auto 3.3 K/mm3 (1.3-6.7); Neutrophils Percent Auto 45.6 % (45.5-73.1); Platelet Count Result 253 k/mm3 (150-375); Red Blood Count 5.21 M/mm3 (4.2-5.4); Red Cell Distribution Width 14.2 % (11.5-14.5); White Blood Count 7.3 K/mm3 (4.5-10.0)
[2024-04-01 23:36] LABS: Partial Thromboplastin Time 30.3 Seconds (22.3-36.8); Prothrombin Time 13.6 Seconds (11.1-14.7)
[2024-04-01 23:42] LABS: Anion Gap 9 mmol/L (4-12); Blood Urea Nitrogen 9 mg/dL (7-17); Calcium 9.3 mg/dL (8.4-10.2); Carbon Dioxide 27 mmol/L (22-30); Chloride 102 mmol/L (98-107); Estimated CRCL calculation 94 ml/min; Estimated Glomerular Filt Rate > 60; Glucose 103 mg/dL (65-110); Potassium 3.5 mmol/L (3.4-5.0); Sodium 138 mmol/L (137-145)
[2024-04-01 23:54] LABS: Troponin I < 0.012 ng/mL (0.000-0.034)
[2024-04-02 00:52] VITALS: BP 168/82; PULSE 88; RESP 16; TEMP 36.6; O2SAT 98
== END 2024-04-02 01:40 | disposition home or self-care (01) ==
PROVIDERS: Emergency Provider Student in an Organized Health Care Education/Training Program; PCP Family Medicine
DX: M54.50 Low back pain, unspecified (principal); I10 Essential (primary) hypertension; D64.9 Anemia, unspecified; K21.9 Gastro-esophageal reflux disease without esophagitis; E03.9 Hypothyroidism, unspecified; M19.90 Unspecified osteoarthritis, unspecified site; F41.9 Anxiety disorder, unspecified
CPT/HCPCS: 36415; 71275; 74174; 80048; 84484; 85025; 85610; 85730; 93005; 99284; Q9967

== ENCOUNTER 2025-03-18 07:53 | Outpatient (CLI) | payer OTHER, SELFPAY ==
--- NOTE | ~2025-03-18 | MM_ITS ---
EXAMINATION: MM screening [facility] BI w lorene HISTORY: Screening TECHNIQUE: Craniocaudal and mediolateral oblique 3-D tomosynthesis images were obtained and synthetic 2-D images were generated. CAD analysis was submitted and interpreted. COMPARISON: Comparison to multiple prior studies sequentially, with oldest reviewed study dated 12/18/2018. BREAST PARENCHYMAL COMPOSITION: There are scattered areas of fibroglandular density. FINDINGS: There is no evidence of suspicious mass, calcification, or architectural distortion to suggest malignancy in either breast. IMPRESSION: 1. No mammographic evidence of malignancy. 2. Recommend routine screening mammography in one year. BI-RADS Category 1: Negative Reviewed, dictated and finalized at location B.
--- OUTSIDE RECORDS SUMMARY | 2025-03-18 07:59 | XMS_ITS | Clinical Summary ---
Author Organization [facility] Address [address] [place] [id number] Care Team Providers Care Roof Assembler Name Role Phone Unavailable Primary Care Provider Unavailabl e Social History Tobacco Use Types Packs/Day Years Used Date Smoking Tobacco: Never Assessed Comments Unknown Sex and Gender Information Value Date Recorded Sex Assigned at Not on file Legal Sex Female 7:23 PM CDT Gender Identity Not on file Sexual Orientation Not on file Plan of Treatment Health Maintenance Due Date Last Done Comments Cervical Cancer Screening Pa p Smear (Age 30 to 64) Every 3 Years 1960 Colorectal Cancer Screening Colonoscopy (10 Years) 1960 Annual Physical 1965 Hepatitis C 1980 DTaP, Tdap and Td Vaccines ( 1 - Tdap) 1981 Cervical Cancer Screening Pa p with HPV Testing (Age 30 to 64) Every 5 Years 1992 Cervical Cancer Screening with HPV 1992 Mammogram Screening 2002 Pneumococcal Vaccine: 50+ Ye ars (1 of 1 - PCV) 2012 Zoster Vaccines (1 of 2) 2012 COVID-19 Vaccine (2023-2 5 season) 2024 RSV Immunization or 60+ Years (1 - 1-dose 75+ series) 2037 Meningococcal B Vaccine Aged Out No l onger eligible based on patient's age to complete this topic Meningococcal Vaccine Aged Out No fabienne mary eligible based on patient's age to complete this topic RSV Immunizations Under 20 Months Aged Out No longer eligible based on patient's age to complete this topic
== END 2025-03-18 07:54 | disposition home or self-care (01) ==
LOC: ANHFOHIMG 07:54
PROVIDERS: PCP Obstetrics & Gynecology Gynecology; Visit Provider Obstetrics & Gynecology Gynecology
DX: Z12.31 Encounter for screening mammogram for malignant neoplasm of breast (principal)
CPT/HCPCS: 77063; 77067

== ENCOUNTER 2025-05-15 12:26 | Outpatient (CLI) | payer OTHER, SELFPAY ==
--- NOTE | ~2025-05-15 | DEXA_ITS ---
Bone Density Report Name: CINTHYA STEVENSON Age: 64 Sex: Female Ethnicity: Black Date of : 1960 Indication: postmenopausal; screening for osteoporosis; hysterectomy; Referring Provider: RACHEL ARZOLA Study: Bone densitometry was performed. Exam Date: May 15, 2025 Accession number: [id number] Bone Density: Region BMD T-score Z-score Classification AP Spine(L1-L4) 1.096 0.4 1.3 Normal Femoral Neck (Left) 0.838 -0.1 0.4 Normal Total Hip (Left) 1.083 1.2 1.2 Normal Femoral Neck (Right) 0.890 0.4 0.7 Normal Total Hip (Right) 1.071 1.1 1.1 Normal Total Hip Mean 1.077 1.2 1.2 Normal World Health Organization criteria for BMD impression classify patients as: Normal (T-score at or above -1.0), Osteopenia (T-score between -1.0 and -2.5), or Osteoporosis (T-score at or below -2.5). 10-year Fracture Risk: FRAX not reported because: All T-scores for Spine Total, Hip Total, Femoral Neck at or above -1.0 Previous Exams: Region Exam Age BMD T-score BMD Change BMD Change Date g/cm2 vs Baseline vs Previous AP Spine (L1-L4) 05/15/2025 64 1.096 0.4 0.025 (2.3%)* 0.034 (3.2%)* 02/16/2022 61 1.062 0.1 -0.008 (-0.8%) 0.006 (0.5%) 04/17/2019 58 1.057 0.1 -0.014 (-1.3%) -0.014 (-1.3%) 07/18/2015 54 1.071 0.2 Total Hip(Left) 05/15/2025 64 1.083 1.2 0.047 (4.5%)* 0.105 (10.7%)* 02/16/2022 61 0.979 0.3 -0.058 (-5.6%) -0.036 (-3.6%) 04/17/2019 58 1.015 0.6 -0.022 (-2.1%) -0.022 (-2.1%) 07/18/2015 54 1.036 0.8 Total Hip(Right) 05/15/2025 64 1.071 1.1 0.052 (5.1%)* 0.070 (7.0%)* 02/16/2022 61 1.002 0.5 -0.018 (-1.7%) 0.002 (0.2%) 04/17/2019 58 0.999 0.5 -0.020 (-2.0%) -0.020 (-2.0%) 07/18/2015 54 1.019 0.6 *Denotes significance at 95% confidence level, LSC for AP Spine = 0.022 g/cm2, LSC for Total Hip = 0.027 g/cm2 Clinical Information Provided by Patient: Has used the following medications: Vitamin D Has the following medical conditions: Hysterectomy Patient maximum height was 67 Menopause Age: 38 No regular weight bearing exercise Drinks caffeinated beverages Onset of menses at age 15 Number of children 0 Missed period for more than 6 months in a row Impression: The patient has normal bone mass. No significant bone loss was observed. Discussion: BONE DENSITY IS ABOVE THE MINIMUM DESIRABLE LEVEL AT ALL SKELETAL SITES TESTED. This patient?s bone mineral density is above the minimum desirable level (T-score -1.0 or better) at all sites measured. The patient should follow a healthful lifestyle (good nutrition with adequate calcium and vitamin D, and appropriate weight-bearing exercise). Follow-Up: Consider repeating this study in 5 years or sooner if there is some new clinical indication. Reported by: BRIAN on 05/15/2025 1:12:00 PM. Reviewed, dictated and finalized at location A.
--- OUTSIDE RECORDS SUMMARY | 2025-05-15 13:18 | XMS_ITS | Clinical Summary ---
Author Organization [facility] Address [facility] [place] [address] Care Team Providers Care Mental Health Aide Name Role Phone Unavailable Primary Care Provider [...] Vaccines (1 of 2) 2012 COVID-19 Vaccine ( - 2023-2 5 season) 2025 Influenza Adult (#1) 2025 RSV Immunization or 60+ Years (1 - 1-dose 75+ series) 2037 Hepatitis A Vaccines Aged Out No long er eligible based on patient's age to complete this topic Meningococcal B Vaccine Aged Out No l onger eligible based on patient's age to complete this topic Meningococcal Vaccine Aged Out No fabienne mary eligible based on patient's age to complete this topic RSV Immunizations Under 20 Months Aged Out No longer eligible based on patient's age to complete this topic
== END 2025-05-15 12:27 | disposition home or self-care (01) ==
LOC: ANHFOHIMG 12:28
PROVIDERS: PCP Family Medicine; Visit Provider Obstetrics & Gynecology Gynecology
DX: Z78.0 Asymptomatic menopausal state (principal)
CPT/HCPCS: 77080